=== PATIENT | male | born 1945 | race Caucasian/White ===

== ENCOUNTER 2017-02-26 00:07 | Inpatient (IN) | payer MEDICARE, MEDICAID ==
--- NOTE | 2017-02-26 00:30 | ED Physician Chart ---
Chief Complaint/HPI - Patient Information Date Seen:: 02/26/17 Time Seen:: 00:20 Chief Complaint:: aggressive behavior History of Present Illness:: Patient apparently exhibiting aggressive behavior at his nursing home facility. He is also reported is noncompliant but is not stated when he is noncompliant with. Allergies:: Allergies Allergy/AdvReac Type Severity Reaction Status Date / Time No Known Allergies Allergy Verified 02/26/17 00:21 Historian:: Patient, EMS Review:: Nurse's Note Reviewed, Patient unable to respond Review of Systems - Review of Systems General/Constitutional: No fever, No chills Skin: Skin lesions Head: No headache Eyes: No loss of vision ENT: No earache Neck: No neck pain, No swelling Cardio Vascular: No chest pain Pulmonary: No SOB GI: No nausea, No vomiting G/U: No dysuria Musculoskeletal: No bone or joint pain Endocrine: No polyuria, No polydipsia Psychiatric: Prior psych history Hematopoietic: No bruising Allergic/Immuno: No urticaria Neurological: No syncope Past Medical History - Past Medical History Past Medical History: HTN, DM, Asthma/COPD, Dyslipidemia, Dementia, Other ( benign prostatic hypertrophy; acute renal failure; hyperlipidemia) Family History: Other (CVA) Social History: Smoker, Care Facility Surgical History: CABG Psychiatricy History: Schizophrenia Family Medical History - Family Member Mother History Unknown: Yes Physical Exam - Physical Examination General/Constitutional: Well-developed, well-nourished, Alert, No distress Other Gen/Cons comments:: Confused; patient does not know the year Head: Atraumatic Eyes: Lids, conjuctiva normal, PERRL Other Skin comments:: 2 cm crossed just to left of mouth ENMT: External ears, nose nl Other ENMT comments:: Edentulous Neck: No nuchal rigidity Respiratory: Nl effort/Exclusion, Clear to Auscultation Cardio Vascular: RRR, No murmur, gallop, rubs GI: No tenderness/rebounding/guarding, No organomegaly, Normal BS's Extremities: No tenderness or effusion Neuro/Psych: Mood normal, No focal deficits Labs/Radiology/EKG Results - Lab Results Results: Laboratory Results - last 24 hr 02/26/17 02/26/17 02/26/17 00:40 00:40 00:40 WBC 7.9 RBC 4.76 Hgb 14.3 Hct 41.9 MCV 88.0 MCH 30.1 MCHC Differential 34.2 RDW 12.9 Plt Count 163 MPV 8.8 Neutrophils % 50.4 Lymphocytes % 37.4 Monocytes % 8.6 Eosinophils % 2.5 Basophils % 1.1 Sodium 144 Potassium 4.8 Chloride 109 H Carbon Dioxide 31.1 H Anion Gap 8.7 BUN 22 Creatinine 1.0 Est GFR ( Amer) TNP Est GFR (Non-Af Amer) TNP BUN/Creatinine Ratio 22.0 Glucose 184 H Calcium 10.7 H Total Bilirubin 0.4 AST 13 ALT 11 Alkaline Phosphatase 112 H Total Protein 7.5 Albumin 4.0 L Globulin 3.5 Albumin/Globulin Ratio 1.1 TSH 5.06 - EKG Interpretations Rate & Rhythm: atrial fibrillation with a rate of 84; T wave changes ED Septic Shock - . Is Septic Shock (SBP<90, OR Lactate>4 mmol\L) present?: No Reassessment (Disposition) - Reassessment Reassessment Condition:: Unchanged - Diagnosis Diagnosis:: dementia with aggressive behavior; atrial fibrillation - Patient Disposition Admitted to:: [facility] Admitting Medical Physician:: Elena Knutson Admitting Psych Physician:: Ana Gordon Condition at Disposition:: Stable, Unchanged
[2017-02-26 00:49] LABS: % BASOPHILS 1.1 % (0.0-2.0); % EOSINOPHILS 2.5 % (0.0-5.0); % LYMPHOCYTES 37.4 % (20.0-50.0); % MONOCYTES 8.6 % (2.0-10.0); % NEUTROPHILS 50.4 % (40.0-80.0); HEMATOCRIT 41.9 % (39.0-49.0); HEMOGLOBIN 14.3 gm/dL (12.6-17.4); MEAN CORPUSCULAR HEMOGLOBIN 30.1 pg (27.0-31.0); MEAN CORPUSCULAR HGB CONC 34.2 pg (28.0-36.0); MEAN PLATELET VOLUME 8.8 fl; NEUTROPHILE ABSOLUTE 3.9 Th/cmm (1.8-8.0); PLATELET COUNT 163 Th/cmm (150-400); RED BLOOD COUNT 4.76 Mil/cmm (3.80-5.80); RED CELL DISTRIBUTION WIDTH 12.9 % (11.5-20.0); WHITE BLOOD COUNT 7.9 Th/cmm (4.8-10.8)
[2017-02-26 01:03] LABS: ALB/GLOB RATIO 1.1 (1.0-1.8); ALKALINE PHOSPHATASE 112 U/L (34-104); ANION GAP 8.7 (7.0-16.0); BILIRUBIN,TOTAL 0.4 mg/dL (0.3-1.0); BUN - UREA NITROGEN 22 mg/dL (7-25); CALCIUM SERUM 10.7 mg/dL (8.6-10.3); CARBON DIOXIDE 31.1 mEq/L (21.0-31.0); CHLORIDE 109 mEq/L (98-107); GLUCOSE 184 mg/dL (70-105); POTASSIUM SERUM 4.8 mEq/L (3.5-5.1); SGOT 13 U/L (13-39); SGPT/ALT 11 U/L (7-52); SODIUM SERUM 144 mEq/L (136-145)
[2017-02-26 02:53] VITALS: BP 124/72
[2017-02-26] MEDS ORDERED: INSULIN ASPART SLIDING SCALE 100 UNITS/ML UNIT SUBQ PRN ×2 (02:58→03:29)
[2017-02-26] MEDS ORDERED: Albuterol Nebulizer 2.5mg/3mL HHN PRN (02:58)
[2017-02-26] MEDS: INSULIN ASPART SLIDING SCALE 100 UNITS/ML UNIT SUBQ SCH ×4 (06:34→21:02)
[2017-02-26] MEDS ORDERED: Non-Formulary Item 1 EA (Amino Acids/Protein Hydrolys [Pro-Stat Sugar Free Liquid] 30 ML) PO SCH (09:00)
[2017-02-26] MEDS: Potassium Chloride Elixir 20 mEq /15 mL UDC PO SCH (10:06)
[2017-02-26] MEDS: Multivitamin w/ Minerals Tab PO SCH (10:08)
[2017-02-26] MEDS: Dabigatran Mesylate 75 mg Cap PO SCH ×2 (12:18→18:16)
[2017-02-26] MEDS: Ipratropium Neb 0.5 mg/2.5 mL UD HHN SCH (19:26)
--- NOTE | 2017-02-26 20:27 | History & Physical ---
ADMIT DATE: 02/26/2017 HISTORY OF PRESENT ILLNESS: The patient is known to have history of psychosis and was brought to the Geropsych Unit for the patient's treatment. I was asked to see the patient ____ and was unable to get much history. PHYSICAL EXAMINATION: VITAL SIGNS: Stable. HEAD: Normal. ENT: Normal. NECK: Supple and nontender. LUNGS: Clear. CARDIOVASCULAR SYSTEM: S1 and S2 heard. ABDOMEN: Soft. Bowel sounds are heard. CENTRAL NERVOUS SYSTEM: Grossly normal. DIAGNOSES: Aggressive behavior, psychosis, and medically blind, ____. JOB# [id number]
[2017-02-26] MEDS: Atorvastatin Calcium 10 MG TAB PO SCH (20:40)
[2017-02-26] MEDS: Insulin Detemir 100 units/mL 10mL Vial SUBQ SCH (21:03)
--- NOTE | 2017-02-27 04:14 | Psychosocial Evaluation ---
DATE OF SERVICE: 02/26/2017 IDENTIFYING DATA: The patient is a 71-year-old male, resident of [facility] in [place]. Information obtained by directly interviewing the patient as well as reviewing the admission papers. JUSTIFICATION FOR HOSPITALIZATION: The patient is admitted here on a voluntary basis in view of his acute agitation and aggressive behavior and trying to hit the nurses and being noncompliant to the medications. Chart is reviewed. The patient is interviewed and further information obtained. The patient has been maintained on Depakote as well as the Seroquel, and the patient has been diagnosed possibly with the bipolar disorder, rule out schizoaffective disorder, and the patient, however, has been noncompliant with the medication, has been insisting on having his way. During the review of the chart, the patient is noted to be confused and demented and is not making much sense. The patient has been asked about the medications, he does not know at night time. The patient has been on Seroquel 200 mg twice a day and the patient is also on Depakote 250 mg 3 times a day. Even with the medications, the patient is reported to have been having problems. PAST PSYCHIATRIC HISTORY: Details are not known. MEDICAL HISTORY: The patient's physical examination is requested to be done by Dr. Knutson. SUBSTANCE ABUSE HISTORY: None. PHYSICAL OR SEXUAL ABUSE HISTORY: None. LEGAL PROBLEMS: None at this time. STRENGTH AND ASSETS: The patient is motivated. MENTAL STATUS EXAMINATION: The patient is a 71-year-old, looking his stated age, superficially cooperative. Eye contact is fair. Mood is noted to be irritable. Affect is constricted. Insight and judgment are noted to be very impaired. Impulse control seems to be poor. Coping skills are also noted to be very poor. The patient's short and long-term memory noted to be impaired. Short-term memory assessed by asking the patient what he had for breakfast and how long he has been in here and where he is and he has no clue. Long-term memory assessed by asking the patient date of , which is not able to recall. Attention span. Concentration also noted to be very poor. The patient's behavior is reported to be a danger to others. The patient has been trying to hurt other people. The patient is not suicidal. DIAGNOSTIC IMPRESSION: AXIS I: A. Bipolar disorder, mixed with psychotic symptoms, rule out schizoaffective disorder. B. Dementia and behavioral change secondary to it. AXIS II: None. AXIS III: As per Dr. Knutson. IMMEDIATE TREATMENT PLAN: The patient is going to be observed on the inpatient unit, provided with supportive psychotherapy. The patient is going to be closely monitored. Encouraged to participate in the groups and verbalize the concerns. When stabilized, the patient is going to be discharged to the facility for followup on an outpatient basis. JOB# [id number]
[2017-02-27] MEDS: INSULIN ASPART SLIDING SCALE 100 UNITS/ML UNIT SUBQ SCH ×4 (06:46→20:58)
[2017-02-27] MEDS: Ipratropium Neb 0.5 mg/2.5 mL UD HHN SCH ×4 (07:04→19:04)
[2017-02-27] MEDS: Potassium Chloride Elixir 20 mEq /15 mL UDC PO SCH (09:29)
[2017-02-27] MEDS: Multivitamin w/ Minerals Tab PO SCH (09:30)
[2017-02-27] MEDS: Dabigatran Mesylate 75 mg Cap PO SCH ×2 (09:32→17:06)
[2017-02-27] MEDS: Atorvastatin Calcium 10 MG TAB PO SCH (20:45)
[2017-02-27] MEDS: Insulin Detemir 100 units/mL 10mL Vial SUBQ SCH (20:48)
--- NOTE | 2017-02-27 21:02 | Progress Notes ---
DATE: 02/27/2017 SUBJECTIVE: The patient was seen in his room lying in bed. The patient is a poor historian due to medical condition. Otherwise, the patient is in no acute distress. OBJECTIVE: VITAL SIGNS: Temperature 98.5, heart rate of 86, respirations 19, blood pressure 134/80. HEENT: Head is atraumatic and normocephalic. Eyes: Bilateral conjunctivae are clear. Bilateral pupils are equally round and reactive. NECK: Supple. No JVD. CARDIOVASCULAR: S1 and S2, without murmur. PULMONARY: Clear to auscultation. GASTROINTESTINAL: Soft and nontender without guarding. MUSCULOSKELETAL: No edema, no clubbing, no cyanosis. DIAGNOSES: 1. Bipolar. 2. Schizoaffective disorder . 3. Dementia. 4. Diabetes mellitus 5. Hyperlipidemia. 6. Osteoarthritis. 7. Benign prostatic hypertrophy. 8. Hypertension. PLAN: We will continue to monitor and keep the patient as inpatient Psychiatric Unit. We will follow up with a psychiatrist to monitor the patient's behavior. Treatment plans were discussed with Dr. Knutson. JOB# [id number]
--- NOTE | 2017-02-28 06:43 | Progress Notes ---
DATE: 02/27/2017 PSYCHIATRIC PROGRESS NOTE TIME PATIENT SEEN: 3:00 p.m. SUBJECTIVE: Staff was spoken to. The patient is interviewed. Mood is noted to be irritable. Affect is constricted. Insight and judgment are noted to be still impaired. Impulse control seems to be poor. Continues to be very paranoid. Mood swings are still a concern. The patient is currently on 200 mg twice a day of the Seroquel and has been able to tolerate the medication. The patient is also on Depakote 250 mg three times a day. No side effects to the medications are noted. ASSESSMENT: The patient is still having acute mood swings and is also noted to be paranoid. PLAN: To continue the patient with supportive therapy. I encouraged the patient to verbalize the concerns rather than to act out. The patient is not ready to be discharged to a lower level of care yet in view of the mood swings and psychosis. JOB# [id number]
[2017-02-28] MEDS: Ipratropium Neb 0.5 mg/2.5 mL UD HHN SCH ×4 (06:56→19:36)
[2017-02-28] MEDS: INSULIN ASPART SLIDING SCALE 100 UNITS/ML UNIT SUBQ SCH ×4 (06:56→21:00)
[2017-02-28] MEDS: Potassium Chloride Elixir 20 mEq /15 mL UDC PO SCH ×2 (10:26→10:39)
[2017-02-28] MEDS: Dabigatran Mesylate 75 mg Cap PO SCH ×2 (10:28→17:37)
[2017-02-28] MEDS: Multivitamin w/ Minerals Tab PO SCH (10:32)
--- NOTE | 2017-02-28 10:33 | General Progress Note ---
Subjective - Review of Systems Events since last encounter: patient with no distress awake Objective - Results Result Diagrams: 02/26/17 00:40 05 00:40 Recent Labs: Laboratory Last Values WBC 7.9 Th/cmm (4.8-10.8) 02/26/17 00:40 RBC 4.76 Mil/cmm (3.80-5.80) 02/26/17 00:40 Hgb 14.3 gm/dL (12.6-17.4) 02/26/17 00:40 Hct 41.9 % (39.0-49.0) 02/26/17 00:40 MCV 88.0 fl (80-99) 02/26/17 00:40 MCH 30.1 pg (27.0-31.0) 02/26/17 00:40 MCHC Differential 34.2 pg (28.0-36.0) 02/26/17 00:40 RDW 12.9 % (11.5-20.0) 02/26/17 00:40 Plt Count 163 Th/cmm (150-400) 02/26/17 00:40 MPV 8.8 fl 02/26/17 00:40 Neutrophils % 50.4 % (40.0-80.0) 02/26/17 00:40 Lymphocytes % 37.4 % (20.0-50.0) 02/26/17 00:40 Monocytes % 8.6 % (2.0-10.0) 02/26/17 00:40 Eosinophils % 2.5 % (0.0-5.0) 02/26/17 00:40 Basophils % 1.1 % (0.0-2.0) 02/26/17 00:40 Sodium 144 mEq/L (136-145) 02/26/17 00:40 Potassium 4.8 mEq/L (3.5-5.1) 02/26/17 00:40 Chloride 109 mEq/L (98-107) H 02/26/17 00:40 Carbon Dioxide 31.1 mEq/L (21.0-31.0) H 02/26/17 00:40 Anion Gap 8.7 (7.0-16.0) 02/26/17 00:40 BUN 22 mg/dL (7-25) 02/26/17 00:40 Creatinine 1.0 mg/dL (0.7-1.3) 02/26/17 00:40 Est GFR ( Amer) TNP 02/26/17 00:40 Est GFR (Non-Af Amer) TNP 02/26/17 00:40 BUN/Creatinine Ratio 22.0 02/26/17 00:40 Glucose 184 mg/dL (70-105) H 02/26/17 00:40 POC Glucose 73 MG/DL (70 - 105) 02/28/17 06:19 Hemoglobin A1c % 7.1 % (4.0-6.0) H 02/26/17 00:40 Calcium 10.7 mg/dL (8.6-10.3) H 02/26/17 00:40 Total Bilirubin 0.4 mg/dL (0.3-1.0) 02/26/17 00:40 AST 13 U/L (13-39) 02/26/17 00:40 ALT 11 U/L (7-52) 02/26/17 00:40 Alkaline Phosphatase 112 U/L (34-104) H 02/26/17 00:40 Total Protein 7.5 gm/dL (6.0-8.3) 02/26/17 00:40 Albumin 4.0 gm/dL (4.2-5.5) L 02/26/17 00:40 Globulin 3.5 gm/dL 02/26/17 00:40 Albumin/Globulin Ratio 1.1 (1.0-1.8) 02/26/17 00:40 TSH 5.06 uIU/ml (0.34-5.60) 02/26/17 00:40 RPR NONREACTIVE (NONREACTIVE) 02/26/17 00:40 - Physical Exam Vitals and I&O: Vital Signs Temp 98.1 F 02/28/17 06:29 Pulse 85 02/28/17 10:29 Resp 14 02/28/17 06:50 BP 146/71 02/28/17 10:29 Pulse Ox 96 02/28/17 06:50 Intake & Output 02/27/17 02/28/17 02/28/17 18:59 06:59 18:59 Intake Total 850 240 Balance 850 240 Intake: Oral 850 240 Other: # Voids 4 1 # Bowel Movements 1 Active Medications: Current Medications Albuterol Sulfate (Albuterol 2.5mg/3ml Neb Ud) 2.5 mg HHN Q4HR PRN PRN Reason: Shortness of Breath Ascorbic Acid (Vitamin C) 500 mg PO DAILY [facility] Stop: 04/27/17 08:59 Last Admin: 02/28/17 10:30 Dose: 500 mg Atorvastatin Calcium (Lipitor) 40 mg PO HS [facility] Stop: 04/27/17 20:59 Last Admin: 02/27/17 20:45 Dose: 40 mg Divalproex Sodium (Depakote Dr) 250 mg PO TID [facility] PRN Reason: Protocol Stop: 04/27/17 08:59 Last Admin: 02/28/17 10:30 Dose: 250 mg Furosemide (Lasix) 20 mg PO BID [facility] Stop: 04/27/17 08:59 Last Admin: 02/27/17 17:06 Dose: 20 mg Ibuprofen (Advil) 600 mg PO QID [facility] Stop: 04/27/17 13:14 Last Admin: 02/27/17 20:46 Dose: 600 mg Insulin Aspart (Novolog Insulin Sliding Scale) 0 units SUBQ ACHS [facility] PRN Reason: Protocol Stop: 04/27/17 07:29 Last Admin: 02/28/17 06:56 Dose: Not Given Insulin Detemir (Levemir Insulin) 20 units SUBQ HS [facility] Stop: 04/27/17 20:59 Last Admin: 02/27/17 20:48 Dose: 20 units Ipratropium [place] (Atrovent Neb 0.5mg/2.5ml) 0.5 mg HHN QIDRT [facility] Stop: 04/27/17 10:59 Last Admin: 02/28/17 06:56 Dose: 0.5 mg Lisinopril (Zestril) 20 mg PO DAILY [facility] Stop: 04/27/17 08:59 Last Admin: 02/28/17 10:29 Dose: 20 mg Potassium Chloride (Potassium Chloride Elixir) 10 meq PO DAILY [facility] Stop: 04/27/17 08:59 Last Admin: 02/28/17 10:26 Dose: 10 meq Quetiapine Fumarate (Seroquel) 200 mg PO BID [facility] PRN Reason: Protocol Stop: 04/27/17 08:59 Last Admin: 02/28/17 10:30 Dose: 200 mg Senna (Senna) 8.6 mg PO [facility] Stop: 04/27/17 20:59 Last Admin: 02/27/17 20:45 Dose: 8.6 mg Tamsulosin HCl (Flomax) 0.4 mg PO HS [facility] Stop: 04/27/17 20:59 Last Admin: 02/27/17 20:45 Dose: 0.4 mg Zolpidem Tartrate (Ambien) 5 mg PO HS PRN PRN Reason: Insomnia Stop: 04/27/17 02:52 Nutritional Asmnt/Malnutr-PDOC - Dietary Evaluation Malnutrition Findings (Please click <Entered> for more info): Nutritional Asmnt/Malnutrition Start: 02/26/17 14: 42 Text: Status: Complete Freq: Document 02/26/17 14:42 GSUN (Rec: 02/26/17 14:54 [email or web address] [email or web address]) Nutritional Asmnt/Malnutrition Patient General Information Nutritional Screening High Risk Screening Diagnosis ER: dementia with aggressive behavior, atrial fibrillation Pertinent Medical Hx/Surgical Hx ER: HTN, DM, asthma/COPD, dyslipidemia, dementia, benign prostatic hypertrophy, acute renal filure, hyperlipidemia, schizophrenia, smoker, CABG Subjective Information 71 year old male from SNF. Pt was asleep during visit, unable to be woken up. No significant muscle/fat wasting noted, pt appears overweight. Bedscale malfunction, unable to obtain weight. Spoke to CERTIFIED PEER SPECIALIST , CERTIFIED PEER SPECIALIST stated pt has good appetite, ate nearly 100% breakfast, no difficulties noted. Current Diet Order/ Nutrition Support [facility] soft chopped, NCS, [place] , [id number] Pertinent Medications Vitamin C, Lipitor, Lasix, Novolog, Levemir, Senna, Seroquel Pertinent Labs 02/26: glucose 184H, A1c 7.1H Nutritional Hx/Data Height 1.7 m Height (Calculated Centimeters) 170.2 Current Weight (lbs) 90.718 kg Weight (Calculated Kilograms) 90.7 Weight (Calculated Grams) 88167.5 [place] Body Weight 148 GI Symptoms [facility] [place], ground meat Skin Integrity/Comment: Contreras Barakat. Estimated Nutritional Goals Calories/Kcals/Kg IBW 148lb/67.3kg Kcals Calculated 1683-2019kcal (25-30kcal/kg) Protein g/kg: IBW Protein Calculated 67g (1g/kg) Fluid: ml 1683-2019ml (1ml/kcal) Nutritional Problem 1. Problem Problem Altered nutrition related laboratory values related to Etiology DM aeb Signs/Symptoms: H&P, A1c 7.1, elevated glucose Intervention/Recommendation Comments 1. Recommend [id number] to rpomtoe glycemic control. Expected Outcomes/Goals Expected Outcomes/Goals 1. PO intake to meet at least 75% of estimated nutritional needs.
--- NOTE | 2017-02-28 12:23 | Admit Criteria Form ---
Admit Criteria Forms - Admit Criteria Diagnosis: PSYCHIATRIC DISORDERS Clinical Indications for Inpatient Care (Place 'X' for any and all applicable criteria): Ongoing inpatient care may be needed for ANY ONE of the following(1)(2)(3)(4)(6) (7)(8): [ ]I. Danger to self or others not manageable at lower level of care. [ ]II. Grave disability (eg, inability to perform self care necessary at lower level of care) [X ]III. Agitation or inappropriate behavior interfering with care for primary condition (eg, attempting to discontinue lines or drains prematurely, unable to cooperate with respiratory care) [ ]IV. Severe disability or disorder indicated by ALL of the following: [ ]a) Severe behavioral health disorder-related symptoms or condition indicated by ANY ONE of the following: [ ]i) Severe problem with cognition, memory, judgment, or impulse control [ ]ii) Severe clinical manifestations (eg, hallucinations, delusions, other acute psychotic symptoms, maik, extreme agitation or anxiety) [ ]b) Patient management at lower level of care is not feasible until acute intervention or modification is initiated. Extended stay beyond goal length of stay for the primary condition may be indicated when ANY ONE of the following is present: (1)(2)(3)(4): [ ]a) Patient is a danger to self or others and not manageable at lower level of care. [ ]b) Behavior crisis management, including physical or chemical restraints, is required and is not available at a lower level of care. [ ]c) Behavioral symptoms (e.g., agitation, somnolence, inappropriate behavior) are present, and are not manageable at a lower level of care. [ ]d) Patient cannot understand follow-up treatment and crisis plan. [ ]e) Provider and supports are not sufficiently available at lower level of care. [ ]f) Patient cannot participate (e.g., verify absence of plan for harm) and is in needed of monitoring. The original [facility] [employer] content created by [facility] DykesMajor Aide has been revised. The portions of the content which have been revised are identified through the use of italic text or in bold, and [facility] DykesMajor Aide has neither reviewed nor approved the modified material. All other unmodified content is copyright [facility] JaniaMajor Aide. Please see references footnoted in the original [facility] edition 2016 Admit Criteria Met?: Yes
[2017-02-28] MEDS: Atorvastatin Calcium 10 MG TAB PO SCH (20:56)
[2017-02-28] MEDS: Insulin Detemir 100 units/mL 10mL Vial SUBQ SCH (21:02)
[2017-03-01] MEDS: Ipratropium Neb 0.5 mg/2.5 mL UD HHN SCH ×4 (07:00→19:43)
[2017-03-01] MEDS: INSULIN ASPART SLIDING SCALE 100 UNITS/ML UNIT SUBQ SCH ×4 (07:53→20:45)
--- NOTE | 2017-03-01 08:27 | General Progress Note ---
Subjective - Review of Systems Events since last encounter: no change Objective - Results Result Diagrams: 02/26/17 00:40 05 00:40 Recent Labs: Laboratory Last Values WBC 7.9 Th/cmm (4.8-10.8) 02/26/17 00:40 RBC 4.76 Mil/cmm (3.80-5.80) 02/26/17 00:40 Hgb 14.3 gm/dL (12.6-17.4) 02/26/17 00:40 Hct 41.9 % (39.0-49.0) 02/26/17 00:40 MCV 88.0 fl (80-99) 02/26/17 00:40 MCH 30.1 pg (27.0-31.0) 02/26/17 00:40 MCHC Differential 34.2 pg (28.0-36.0) 02/26/17 00:40 RDW 12.9 % (11.5-20.0) 02/26/17 00:40 Plt Count 163 Th/cmm (150-400) 02/26/17 00:40 MPV 8.8 fl 02/26/17 00:40 Neutrophils % 50.4 % (40.0-80.0) 02/26/17 00:40 Lymphocytes % 37.4 % (20.0-50.0) 02/26/17 00:40 Monocytes % 8.6 % (2.0-10.0) 02/26/17 00:40 Eosinophils % 2.5 % (0.0-5.0) 02/26/17 00:40 Basophils % 1.1 % (0.0-2.0) 02/26/17 00:40 Sodium 144 mEq/L (136-145) 02/26/17 00:40 Potassium 4.8 mEq/L (3.5-5.1) 02/26/17 00:40 Chloride 109 mEq/L (98-107) H 02/26/17 00:40 Carbon Dioxide 31.1 mEq/L (21.0-31.0) H 02/26/17 00:40 Anion Gap 8.7 (7.0-16.0) 02/26/17 00:40 BUN 22 mg/dL (7-25) 02/26/17 00:40 Creatinine 1.0 mg/dL (0.7-1.3) 02/26/17 00:40 Est GFR ( Amer) TNP 02/26/17 00:40 Est GFR (Non-Af Amer) TNP 02/26/17 00:40 BUN/Creatinine Ratio 22.0 02/26/17 00:40 Glucose 184 mg/dL (70-105) H 02/26/17 00:40 POC Glucose 71 MG/DL (70 - 105) 03/01/17 06:46 Hemoglobin A1c % 7.1 % (4.0-6.0) H 02/26/17 00:40 Calcium 10.7 mg/dL (8.6-10.3) H 02/26/17 00:40 Total Bilirubin 0.4 mg/dL (0.3-1.0) 02/26/17 00:40 AST 13 U/L (13-39) 02/26/17 00:40 ALT 11 U/L (7-52) 02/26/17 00:40 Alkaline Phosphatase 112 U/L (34-104) H 02/26/17 00:40 Total Protein 7.5 gm/dL (6.0-8.3) 02/26/17 00:40 Albumin 4.0 gm/dL (4.2-5.5) L 02/26/17 00:40 Globulin 3.5 gm/dL 02/26/17 00:40 Albumin/Globulin Ratio 1.1 (1.0-1.8) 02/26/17 00:40 TSH 5.06 uIU/ml (0.34-5.60) 02/26/17 00:40 RPR NONREACTIVE (NONREACTIVE) 02/26/17 00:40 - Physical Exam Vitals and I&O: Vital Signs Temp 97 F 03/01/17 06:08 Pulse 78 03/01/17 07:00 Resp 14 03/01/17 07:00 BP 140/77 03/01/17 06:08 Pulse Ox 96 03/01/17 07:00 Intake & Output 02/28/17 03/01/17 03/01/17 18:59 06:59 18:59 Intake Total 750 120 Balance 750 120 Intake: Oral 750 120 Other: # Voids 4 3 # Bowel Movements 0 0 Active Medications: Current Medications Albuterol Sulfate (Albuterol 2.5mg/3ml Neb Ud) 2.5 mg HHN Q4HR PRN PRN Reason: Shortness of Breath Ascorbic Acid (Vitamin C) 500 mg PO DAILY [facility] Stop: 04/27/17 08:59 Last Admin: 02/28/17 10:30 Dose: 500 mg Atorvastatin Calcium (Lipitor) 40 mg PO HS [facility] Stop: 04/27/17 20:59 Last Admin: 02/28/17 20:56 Dose: 40 mg Divalproex Sodium (Depakote Dr) 250 mg PO TID [facility] PRN Reason: Protocol Stop: 04/27/17 08:59 Last Admin: 02/28/17 20:57 Dose: 250 mg Furosemide (Lasix) 20 mg PO BID [facility] Stop: 04/27/17 08:59 Last Admin: 02/28/17 17:37 Dose: Not Given Ibuprofen (Advil) 600 mg PO QID [facility] Stop: 04/27/17 13:14 Last Admin: 02/28/17 20:55 Dose: 600 mg Insulin Aspart (Novolog Insulin Sliding Scale) 0 units SUBQ ACHS [facility] PRN Reason: Protocol Stop: 04/27/17 07:29 Last Admin: 03/01/17 07:53 Dose: Not Given Insulin Detemir (Levemir Insulin) 20 units SUBQ HS [facility] Stop: 04/27/17 20:59 Last Admin: 02/28/17 21:02 Dose: 20 units Ipratropium [place] (Atrovent Neb 0.5mg/2.5ml) 0.5 mg HHN QIDRT [facility] Stop: 04/27/17 10:59 Last Admin: 03/01/17 07:00 Dose: 0.5 mg Lisinopril (Zestril) 20 mg PO DAILY [facility] Stop: 04/27/17 08:59 Last Admin: 02/28/17 10:29 Dose: 20 mg Potassium Chloride (Potassium Chloride Elixir) 10 meq PO DAILY [facility] Stop: 04/27/17 08:59 Last Admin: 02/28/17 10:39 Dose: Not Given Quetiapine Fumarate (Seroquel) 200 mg PO BID [facility] PRN Reason: Protocol Stop: 04/27/17 08:59 Last Admin: 02/28/17 17:38 Dose: Not Given Senna (Senna) 8.6 mg PO HS [facility] Stop: 04/27/17 20:59 Last Admin: 02/28/17 20:56 Dose: 8.6 mg Tamsulosin HCl (Flomax) 0.4 mg PO HS [facility] Stop: 04/27/17 20:59 Last Admin: 02/28/17 20:54 Dose: 0.4 mg Zolpidem Tartrate (Ambien) 5 mg PO HS PRN PRN Reason: Insomnia Stop: 04/27/17 02:52 Nutritional Asmnt/Malnutr-PDOC - Dietary Evaluation Malnutrition Findings (Please click <Entered> for more info): Nutritional Asmnt/Malnutrition Start: 02/26/17 14: 42 Text: Status: Complete Freq: Document 02/26/17 14:42 GSUN (Rec: 02/26/17 14:54 [email or web address] [email or web address]) Nutritional Asmnt/Malnutrition Patient General Information Nutritional Screening High Risk Screening Diagnosis ER: dementia with aggressive behavior, atrial fibrillation Pertinent Medical Hx/Surgical Hx ER: HTN, DM, asthma/COPD, dyslipidemia, dementia, benign prostatic hypertrophy, acute renal filure, hyperlipidemia, schizophrenia, smoker, CABG Subjective Information 71 year old male from SNF. Pt was asleep during visit, unable to be woken up. No significant muscle/fat wasting noted, pt appears overweight. Bedscale malfunction, unable to obtain weight. Spoke to IBM BPM DEVELOPER , [employer] BPM DEVELOPER stated pt has good appetite, ate nearly 100% breakfast, no difficulties noted. Current Diet Order/ Nutrition Support [facility] soft chopped, NCS, [place] , [id number] Pertinent Medications Vitamin C, Lipitor, Lasix, Novolog, Levemir, Senna, Seroquel Pertinent Labs 02/26: glucose 184H, A1c 7.1H Nutritional Hx/Data Height 1.7 m Height (Calculated Centimeters) 170.2 Current Weight (lbs) 90.718 kg Weight (Calculated Kilograms) 90.7 Weight (Calculated Grams) 04704.5 [place] Body Weight 148 GI Symptoms Usual diet at home [facility] SNF: NCS, [facility] soft , [place], ground meat Skin Integrity/Comment: Contreras Barakat. Estimated Nutritional Goals Calories/Kcals/Kg IBW 148lb/67.3kg Kcals Calculated 1683-2019kcal (25-30kcal/kg) Protein g/kg: IBW Protein Calculated 67g (1g/kg) Fluid: ml 1683-2019ml (1ml/kcal) Nutritional Problem 1. Problem Problem Altered nutrition related laboratory values related to Etiology DM aeb Signs/Symptoms: H&P, A1c 7.1, elevated glucose Intervention/Recommendation Comments 1. Recommend [id number] to rpomtoe glycemic control. Expected Outcomes/Goals Expected Outcomes/Goals 1. PO intake to meet at least 75% of estimated nutritional needs.
--- NOTE | 2017-03-01 08:41 | Progress Notes ---
DATE: 02/28/2017 PSYCHIATRIC PROGRESS NOTE TIME PATIENT SEEN: 11:30 a.m. SUBJECTIVE: Staff was spoken to. The patient is interviewed. Mood is noted to be irritable. Affect is constricted. Insight and judgment are noted to be still impaired. Impulse control is noted to be poor. The patient has been threatening to hurt others. The patient to be given a dose of Ativan to calm him down. The patient at this time is not able to contract for safety. No side effects to the medications are noted. ASSESSMENT: The patient is still impulsive and hence the patient is currently on Seroquel 200 mg twice a day and has been able to tolerate the medications. PLAN: To continue the patient with the current medications. I encouraged the patient to verbalize the concerns rather than to act out. JOB# [id number]
[2017-03-01] MEDS: Dabigatran Mesylate 75 mg Cap PO SCH ×2 (09:39→17:21)
[2017-03-01] MEDS: Potassium Chloride Elixir 20 mEq /15 mL UDC PO SCH (09:42)
[2017-03-01] MEDS: Multivitamin w/ Minerals Tab PO SCH (09:42)
[2017-03-01] MEDS: Atorvastatin Calcium 10 MG TAB PO SCH (20:09)
[2017-03-01] MEDS: Insulin Detemir 100 units/mL 10mL Vial SUBQ SCH (20:45)
[2017-03-02] MEDS: INSULIN ASPART SLIDING SCALE 100 UNITS/ML UNIT SUBQ SCH ×4 (06:34→20:31)
[2017-03-02] MEDS: Ipratropium Neb 0.5 mg/2.5 mL UD HHN SCH ×5 (08:01→19:20)
--- NOTE | 2017-03-02 08:40 | General Progress Note ---
Subjective - Review of Systems Events since last encounter: no distress Objective - Results Result Diagrams: 02/26/17 00:40 05 00:40 Recent Labs: Laboratory Last Values WBC 7.9 Th/cmm (4.8-10.8) 02/26/17 00:40 RBC 4.76 Mil/cmm (3.80-5.80) 02/26/17 00:40 Hgb 14.3 gm/dL (12.6-17.4) 02/26/17 00:40 Hct 41.9 % (39.0-49.0) 02/26/17 00:40 MCV 88.0 fl (80-99) 02/26/17 00:40 MCH 30.1 pg (27.0-31.0) 02/26/17 00:40 MCHC Differential 34.2 pg (28.0-36.0) 02/26/17 00:40 RDW 12.9 % (11.5-20.0) 02/26/17 00:40 Plt Count 163 Th/cmm (150-400) 02/26/17 00:40 MPV 8.8 fl 02/26/17 00:40 Neutrophils % 50.4 % (40.0-80.0) 02/26/17 00:40 Lymphocytes % 37.4 % (20.0-50.0) 02/26/17 00:40 Monocytes % 8.6 % (2.0-10.0) 02/26/17 00:40 Eosinophils % 2.5 % (0.0-5.0) 02/26/17 00:40 Basophils % 1.1 % (0.0-2.0) 02/26/17 00:40 Sodium 144 mEq/L (136-145) 02/26/17 00:40 Potassium 4.8 mEq/L (3.5-5.1) 02/26/17 00:40 Chloride 109 mEq/L (98-107) H 02/26/17 00:40 Carbon Dioxide 31.1 mEq/L (21.0-31.0) H 02/26/17 00:40 Anion Gap 8.7 (7.0-16.0) 02/26/17 00:40 BUN 22 mg/dL (7-25) 02/26/17 00:40 Creatinine 1.0 mg/dL (0.7-1.3) 02/26/17 00:40 Est GFR ( Amer) TNP 02/26/17 00:40 Est GFR (Non-Af Amer) TNP 02/26/17 00:40 BUN/Creatinine Ratio 22.0 02/26/17 00:40 Glucose 184 mg/dL (70-105) H 02/26/17 00:40 POC Glucose 136 MG/DL (70 - 105) H 03/01/17 16:32 Hemoglobin A1c % 7.1 % (4.0-6.0) H 02/26/17 00:40 Calcium 10.7 mg/dL (8.6-10.3) H 02/26/17 00:40 Total Bilirubin 0.4 mg/dL (0.3-1.0) 02/26/17 00:40 AST 13 U/L (13-39) 02/26/17 00:40 ALT 11 U/L (7-52) 02/26/17 00:40 Alkaline Phosphatase 112 U/L (34-104) H 02/26/17 00:40 Total Protein 7.5 gm/dL (6.0-8.3) 02/26/17 00:40 Albumin 4.0 gm/dL (4.2-5.5) L 02/26/17 00:40 Globulin 3.5 gm/dL 02/26/17 00:40 Albumin/Globulin Ratio 1.1 (1.0-1.8) 02/26/17 00:40 TSH 5.06 uIU/ml (0.34-5.60) 02/26/17 00:40 RPR NONREACTIVE (NONREACTIVE) 02/26/17 00:40 - Physical Exam Vitals and I&O: Vital Signs Temp 98.2 F 03/02/17 06:08 Pulse 89 03/02/17 06:08 Resp 18 03/02/17 06:08 BP 149/93 03/02/17 06:08 Pulse Ox 95 03/02/17 06:08 Intake & Output 03/01/17 03/02/17 03/02/17 18:59 06:59 18:59 Intake Total 2400 120 Balance 2400 120 Intake: Oral 2400 120 Other: # Voids 4 1 # Bowel Movements 1 0 Active Medications: Current Medications Albuterol Sulfate (Albuterol 2.5mg/3ml Neb Ud) 2.5 mg HHN Q4HR PRN PRN Reason: Shortness of Breath Ascorbic Acid (Vitamin C) 500 mg PO DAILY [facility] Stop: 04/27/17 08:59 Last Admin: 03/01/17 09:45 Dose: 500 mg Atorvastatin Calcium (Lipitor) 40 mg PO HS [facility] Stop: 04/27/17 20:59 Last Admin: 03/01/17 20:09 Dose: 40 mg Divalproex Sodium (Depakote Dr) 250 mg PO TID [facility] PRN Reason: Protocol Stop: 04/27/17 08:59 Last Admin: 03/01/17 20:12 Dose: 250 mg Furosemide (Lasix) 20 mg PO BID [facility] Stop: 04/27/17 08:59 Last Admin: 03/01/17 17:21 Dose: 20 mg Ibuprofen (Advil) 600 mg PO QID [facility] Stop: 04/27/17 13:14 Last Admin: 03/01/17 20:09 Dose: 600 mg Insulin Aspart (Novolog Insulin Sliding Scale) 0 units SUBQ ACHS [facility] PRN Reason: Protocol Stop: 04/27/17 07:29 Last Admin: 03/02/17 06:34 Dose: Not Given Insulin Detemir (Levemir Insulin) 20 units SUBQ HS [facility] Stop: 04/27/17 20:59 Last Admin: 03/01/17 20:45 Dose: 20 units Ipratropium [place] (Atrovent Neb 0.5mg/2.5ml) 0.5 mg HHN QIDRT [facility] Stop: 04/27/17 10:59 Last Admin: 03/02/17 08:01 Dose: Not Given Lisinopril (Zestril) 20 mg PO DAILY [facility] Stop: 04/27/17 08:59 Last Admin: 03/01/17 09:44 Dose: 20 mg Potassium Chloride (Potassium Chloride Elixir) 10 meq PO DAILY [facility] Stop: 04/27/17 08:59 Last Admin: 03/01/17 09:42 Dose: 10 meq Quetiapine Fumarate (Seroquel) 200 mg PO BID [facility] PRN Reason: Protocol Stop: 04/27/17 08:59 Last Admin: 03/01/17 17:21 Dose: 200 mg Senna (Senna) 8.6 mg PO [facility] Stop: 04/27/17 20:59 Last Admin: 03/01/17 20:12 Dose: 8.6 mg Tamsulosin HCl (Flomax) 0.4 mg PO HS [facility] Stop: 04/27/17 20:59 Last Admin: 03/01/17 20:12 Dose: 0.4 mg Zolpidem Tartrate (Ambien) 5 mg PO HS PRN PRN Reason: Insomnia Stop: 04/27/17 02:52 Nutritional Asmnt/Malnutr-PDOC - Dietary Evaluation Malnutrition Findings (Please click <Entered> for more info): Nutritional Asmnt/Malnutrition Start: 02/26/17 14: 42 Text: Status: Complete Freq: Document 02/26/17 14:42 GSUN (Rec: 02/26/17 14:54 GSUN [email or web address]) Nutritional Asmnt/Malnutrition Patient General Information Nutritional Screening High Risk Screening Diagnosis ER: dementia with aggressive behavior, atrial fibrillation Pertinent Medical Hx/Surgical Hx ER: HTN, DM, asthma/COPD, dyslipidemia, dementia, benign prostatic hypertrophy, acute renal filure, hyperlipidemia, schizophrenia, smoker, CABG Subjective Information 71 year old male from SNF. Pt was asleep during visit, unable to be woken up. No significant muscle/fat wasting noted, pt appears overweight. Bedscale malfunction, unable to obtain weight. Spoke to OVERHEAD IRRIGATOR , OVERHEAD IRRIGATOR stated pt has good appetite, ate nearly 100% breakfast, no difficulties noted. Current Diet Order/ Nutrition Support [facility] soft chopped, NCS, [place] , [id number] Pertinent Medications Vitamin C, Lipitor, Lasix, Novolog, Levemir, Senna, Seroquel Pertinent Labs 02/26: glucose 184H, A1c 7.1H Nutritional Hx/Data Height 1.7 m Height (Calculated Centimeters) 170.2 Current Weight (lbs) 90.718 kg Weight (Calculated Kilograms) 90.7 Weight (Calculated Grams) 65573.5 [place] Body Weight 148 GI Symptoms [facility], [place] soft , [place], ground meat Skin Integrity/Comment: Contreras Barakat. Estimated Nutritional Goals Calories/Kcals/Kg IBW 148lb/67.3kg Kcals Calculated 1683-2019kcal (25-30kcal/kg) Protein g/kg: IBW Protein Calculated 67g (1g/kg) Fluid: ml 1683-2019ml (1ml/kcal) Nutritional Problem 1. Problem Problem Altered nutrition related laboratory values related to Etiology DM aeb Signs/Symptoms: H&P, A1c 7.1, elevated glucose Intervention/Recommendation Comments 1. Recommend [id number] to rpomtoe glycemic control. Expected Outcomes/Goals Expected Outcomes/Goals 1. PO intake to meet at least 75% of estimated nutritional needs.
[2017-03-02] MEDS: Potassium Chloride Elixir 20 mEq /15 mL UDC PO SCH (09:07)
[2017-03-02] MEDS: Multivitamin w/ Minerals Tab PO SCH (09:07)
[2017-03-02] MEDS: Dabigatran Mesylate 75 mg Cap PO SCH ×2 (09:14→16:30)
--- NOTE | 2017-03-02 18:49 | Progress Notes ---
DATE: 03/01/2017 PSYCHIATRIC PROGRESS NOTE TIME PATIENT SEEN: 9:00 a.m. SUBJECTIVE: Staff was spoken to. The patient is interviewed. Mood is noted to be irritable. Affect is constricted. Insight and judgment are very impaired. Impulse control seems to be poor. The patient has been trying to set the limit. The patient has been screaming and yelling at the staff and has been trying to hit them when they are trying to help. No side effects to the medications are noted. The patient is paranoid and demented at the same time and needs to be closely monitored. PLAN: To continue the patient with the current medications. I encouraged the patient to verbalize the concerns rather than to act out. JOB# [id number]
[2017-03-02] MEDS: Atorvastatin Calcium 10 MG TAB PO SCH (20:18)
[2017-03-02] MEDS: Insulin Detemir 100 units/mL 10mL Vial SUBQ SCH (20:31)
[2017-03-03] MEDS: INSULIN ASPART SLIDING SCALE 100 UNITS/ML UNIT SUBQ SCH ×4 (06:36→20:40)
[2017-03-03] MEDS: Ipratropium Neb 0.5 mg/2.5 mL UD HHN SCH ×4 (07:28→20:19)
--- NOTE | 2017-03-03 08:13 | General Progress Note ---
Subjective - Review of Systems Events since last encounter: no distress Objective - Results Result Diagrams: 02/26/17 00:40 05 00:40 Recent Labs: Laboratory Last Values WBC 7.9 Th/cmm (4.8-10.8) 02/26/17 00:40 RBC 4.76 Mil/cmm (3.80-5.80) 02/26/17 00:40 Hgb 14.3 gm/dL (12.6-17.4) 02/26/17 00:40 Hct 41.9 % (39.0-49.0) 02/26/17 00:40 MCV 88.0 fl (80-99) 02/26/17 00:40 MCH 30.1 pg (27.0-31.0) 02/26/17 00:40 MCHC Differential 34.2 pg (28.0-36.0) 02/26/17 00:40 RDW 12.9 % (11.5-20.0) 02/26/17 00:40 Plt Count 163 Th/cmm (150-400) 02/26/17 00:40 MPV 8.8 fl 02/26/17 00:40 Neutrophils % 50.4 % (40.0-80.0) 02/26/17 00:40 Lymphocytes % 37.4 % (20.0-50.0) 02/26/17 00:40 Monocytes % 8.6 % (2.0-10.0) 02/26/17 00:40 Eosinophils % 2.5 % (0.0-5.0) 02/26/17 00:40 Basophils % 1.1 % (0.0-2.0) 02/26/17 00:40 Sodium 144 mEq/L (136-145) 02/26/17 00:40 Potassium 4.8 mEq/L (3.5-5.1) 02/26/17 00:40 Chloride 109 mEq/L (98-107) H 02/26/17 00:40 Carbon Dioxide 31.1 mEq/L (21.0-31.0) H 02/26/17 00:40 Anion Gap 8.7 (7.0-16.0) 02/26/17 00:40 BUN 22 mg/dL (7-25) 02/26/17 00:40 Creatinine 1.0 mg/dL (0.7-1.3) 02/26/17 00:40 Est GFR ( Amer) TNP 02/26/17 00:40 Est GFR (Non-Af Amer) TNP 02/26/17 00:40 BUN/Creatinine Ratio 22.0 02/26/17 00:40 Glucose 184 mg/dL (70-105) H 02/26/17 00:40 POC Glucose 157 MG/DL (70 - 105) H 03/03/17 05:55 Hemoglobin A1c % 7.1 % (4.0-6.0) H 02/26/17 00:40 Calcium 10.7 mg/dL (8.6-10.3) H 02/26/17 00:40 Total Bilirubin 0.4 mg/dL (0.3-1.0) 02/26/17 00:40 AST 13 U/L (13-39) 02/26/17 00:40 ALT 11 U/L (7-52) 02/26/17 00:40 Alkaline Phosphatase 112 U/L (34-104) H 02/26/17 00:40 Total Protein 7.5 gm/dL (6.0-8.3) 02/26/17 00:40 Albumin 4.0 gm/dL (4.2-5.5) L 02/26/17 00:40 Globulin 3.5 gm/dL 02/26/17 00:40 Albumin/Globulin Ratio 1.1 (1.0-1.8) 02/26/17 00:40 TSH 5.06 uIU/ml (0.34-5.60) 02/26/17 00:40 RPR NONREACTIVE (NONREACTIVE) 02/26/17 00:40 - Physical Exam Vitals and I&O: Vital Signs Temp 98.1 F 03/03/17 05:53 Pulse 92 03/03/17 07:28 Resp 18 03/03/17 07:28 BP 113/66 03/03/17 05:53 Pulse Ox 95 03/03/17 07:28 Intake & Output 03/02/17 03/03/17 03/03/17 18:59 06:59 18:59 Intake Total 1400 120 Balance 1400 120 Intake: Oral 1400 120 Other: # Voids 3 1 # Bowel Movements 1 0 Active Medications: Current Medications Albuterol Sulfate (Albuterol 2.5mg/3ml Neb Ud) 2.5 mg HHN Q4HR PRN PRN Reason: Shortness of Breath Ascorbic Acid (Vitamin C) 500 mg PO DAILY [facility] Stop: 04/27/17 08:59 Last Admin: 03/02/17 09:07 Dose: 500 mg Atorvastatin Calcium (Lipitor) 40 mg PO HS [facility] Stop: 04/27/17 20:59 Last Admin: 03/02/17 20:18 Dose: 40 mg Divalproex Sodium (Depakote Dr) 250 mg PO TID [facility] PRN Reason: Protocol Stop: 04/27/17 08:59 Last Admin: 03/02/17 20:18 Dose: 250 mg Furosemide (Lasix) 20 mg PO BID [facility] Stop: 04/27/17 08:59 Last Admin: 03/02/17 16:31 Dose: 20 mg Ibuprofen (Advil) 600 mg PO QID [facility] Stop: 04/27/17 13:14 Last Admin: 03/02/17 20:18 Dose: 600 mg Insulin Aspart (Novolog Insulin Sliding Scale) 0 units SUBQ ACHS [facility] PRN Reason: Protocol Stop: 04/27/17 07:29 Last Admin: 03/03/17 06:36 Dose: 2 units Insulin Detemir (Levemir Insulin) 20 units SUBQ HS [facility] Stop: 04/27/17 20:59 Last Admin: 03/02/17 20:31 Dose: 20 units Ipratropium [place] (Atrovent Neb 0.5mg/2.5ml) 0.5 mg HHN QIDRT [facility] Stop: 04/27/17 10:59 Last Admin: 03/03/17 07:28 Dose: 0.5 mg Lisinopril (Zestril) 20 mg PO DAILY [facility] Stop: 04/27/17 08:59 Last Admin: 03/02/17 09:07 Dose: 20 mg Potassium Chloride (Potassium Chloride Elixir) 10 meq PO DAILY [facility] Stop: 04/27/17 08:59 Last Admin: 03/02/17 09:07 Dose: 10 meq Quetiapine Fumarate (Seroquel) 200 mg PO BID [facility] PRN Reason: Protocol Stop: 04/27/17 08:59 Last Admin: 03/02/17 16:32 Dose: 200 mg Senna (Senna) 8.6 mg PO HS [facility] Stop: 04/27/17 20:59 Last Admin: 03/02/17 20:19 Dose: 8.6 mg Tamsulosin HCl (Flomax) 0.4 mg PO HS [facility] Stop: 04/27/17 20:59 Last Admin: 03/02/17 20:19 Dose: 0.4 mg Zolpidem Tartrate (Ambien) 5 mg PO HS PRN PRN Reason: Insomnia Stop: 04/27/17 02:52 Nutritional Asmnt/Malnutr-PDOC - Dietary Evaluation Malnutrition Findings (Please click <Entered> for more info): Nutritional Asmnt/Malnutrition Start: 02/26/17 14: 42 Text: Status: Complete Freq: Document 02/26/17 14:42 GSUN (Rec: 02/26/17 14:54 GSUN [email or web address]) Nutritional Asmnt/Malnutrition Patient General Information Nutritional Screening High Risk Screening Diagnosis ER: dementia with aggressive behavior, atrial fibrillation Pertinent Medical Hx/Surgical Hx ER: HTN, DM, asthma/COPD, dyslipidemia, dementia, benign prostatic hypertrophy, acute renal filure, hyperlipidemia, schizophrenia, smoker, CABG Subjective Information 71 year old male from SNF. Pt was asleep during visit, unable to be woken up. No significant muscle/fat wasting noted, pt appears overweight. Bedscale malfunction, unable to obtain weight. Spoke to SOFTBALL PLAYER , SOFTBALL PLAYER stated pt has good appetite, ate nearly 100% breakfast, no difficulties noted. Current Diet Order/ Nutrition Support [facility] soft chopped, NCS, [place] , [id number] Pertinent Medications Vitamin C, Lipitor, Lasix, Novolog, Levemir, Senna, Seroquel Pertinent Labs 02/26: glucose 184H, A1c 7.1H Nutritional Hx/Data Height 1.7 m Height (Calculated Centimeters) 170.2 Current Weight (lbs) 90.718 kg Weight (Calculated Kilograms) 90.7 Weight (Calculated Grams) 87456.5 [place] Body Weight 148 GI Symptoms [facility], [facility], [place] soft , [place], ground meat Skin Integrity/Comment: Contreras Barakat. Estimated Nutritional Goals Calories/Kcals/Kg IBW 148lb/67.3kg Kcals Calculated 1683-2019kcal (25-30kcal/kg) Protein g/kg: IBW Protein Calculated 67g (1g/kg) Fluid: ml 1683-2019ml (1ml/kcal) Nutritional Problem 1. Problem Problem Altered nutrition related laboratory values related to Etiology DM aeb Signs/Symptoms: H&P, A1c 7.1, elevated glucose Intervention/Recommendation Comments 1. Recommend [id number] to rpomtoe glycemic control. Expected Outcomes/Goals Expected Outcomes/Goals 1. PO intake to meet at least 75% of estimated nutritional needs.
[2017-03-03] MEDS: Dabigatran Mesylate 75 mg Cap PO SCH ×2 (09:08→16:35)
[2017-03-03] MEDS: Multivitamin w/ Minerals Tab PO SCH (09:10)
[2017-03-03] MEDS: Potassium Chloride Elixir 20 mEq /15 mL UDC PO SCH (09:10)
--- NOTE | 2017-03-03 15:58 | Progress Notes ---
DATE: 03/02/2017 PSYCHIATRIC PROGRESS NOTE TIME PATIENT SEEN: 11:30 a.m. SUBJECTIVE: Staff was spoken to. The patient is interviewed. Mood is noted to be irritable. Affect is constricted. Continues to seek negative attention. The patient has no insight into his illness. Coping skills are noted to be very poor at this time. The patient is still testing the limits. The patient is currently on Seroquel and the patient has been able to tolerate the medication. ASSESSMENT: The patient is still psychotic and impulsive. PLAN: To continue the patient with the current medications and followup. JOB# [id number]
[2017-03-03] MEDS: Atorvastatin Calcium 10 MG TAB PO SCH (20:26)
[2017-03-03] MEDS: Insulin Detemir 100 units/mL 10mL Vial SUBQ SCH (20:42)
[2017-03-04] MEDS: INSULIN ASPART SLIDING SCALE 100 UNITS/ML UNIT SUBQ SCH ×4 (06:52→20:56)
[2017-03-04] MEDS: Ipratropium Neb 0.5 mg/2.5 mL UD HHN SCH ×5 (07:22→18:55)
--- NOTE | 2017-03-04 08:10 | Progress Notes ---
DATE: 03/03/2017 TIME PATIENT SEEN: 5:30 p.m. SUBJECTIVE: Staff was spoken to. The patient is interviewed. The patient is screaming and yelling all the time. Insight and judgment at this time are noted to be very much impaired. Coping skills are noted to be poor. No side effects to the medications are noted. The patient is currently on Seroquel 200 mg twice a day and has been able to tolerate the medication. ASSESSMENT: The patient is still psychotic and impulsive. PLAN: To continue the patient with the current medications and followup. JOB# [id number]
[2017-03-04] MEDS: Dabigatran Mesylate 75 mg Cap PO SCH ×2 (09:56→16:50)
[2017-03-04] MEDS: Multivitamin w/ Minerals Tab PO SCH (09:56)
[2017-03-04] MEDS: Potassium Chloride Elixir 20 mEq /15 mL UDC PO SCH (09:57)
[2017-03-04] MEDS: Atorvastatin Calcium 10 MG TAB PO SCH (20:53)
[2017-03-04] MEDS: Insulin Detemir 100 units/mL 10mL Vial SUBQ SCH (20:55)
[2017-03-05] MEDS: INSULIN ASPART SLIDING SCALE 100 UNITS/ML UNIT SUBQ SCH ×4 (06:30→21:27)
[2017-03-05] MEDS: Ipratropium Neb 0.5 mg/2.5 mL UD HHN SCH ×6 (07:23→19:07)
[2017-03-05] MEDS: Potassium Chloride Elixir 20 mEq /15 mL UDC PO SCH (09:01)
[2017-03-05] MEDS: Dabigatran Mesylate 75 mg Cap PO SCH ×2 (09:03→16:48)
[2017-03-05] MEDS: Multivitamin w/ Minerals Tab PO SCH (09:03)
--- NOTE | 2017-03-05 15:43 | General Progress Note ---
Subjective - Review of Systems Events since last encounter: no distress Objective - Results Result Diagrams: 02/26/17 00:40 05 00:40 Recent Labs: Laboratory Last Values WBC 7.9 Th/cmm (4.8-10.8) 02/26/17 00:40 RBC 4.76 Mil/cmm (3.80-5.80) 02/26/17 00:40 Hgb 14.3 gm/dL (12.6-17.4) 02/26/17 00:40 Hct 41.9 % (39.0-49.0) 02/26/17 00:40 MCV 88.0 fl (80-99) 02/26/17 00:40 MCH 30.1 pg (27.0-31.0) 02/26/17 00:40 MCHC Differential 34.2 pg (28.0-36.0) 02/26/17 00:40 RDW 12.9 % (11.5-20.0) 02/26/17 00:40 Plt Count 163 Th/cmm (150-400) 02/26/17 00:40 MPV 8.8 fl 02/26/17 00:40 Neutrophils % 50.4 % (40.0-80.0) 02/26/17 00:40 Lymphocytes % 37.4 % (20.0-50.0) 02/26/17 00:40 Monocytes % 8.6 % (2.0-10.0) 02/26/17 00:40 Eosinophils % 2.5 % (0.0-5.0) 02/26/17 00:40 Basophils % 1.1 % (0.0-2.0) 02/26/17 00:40 Sodium 144 mEq/L (136-145) 02/26/17 00:40 Potassium 4.8 mEq/L (3.5-5.1) 02/26/17 00:40 Chloride 109 mEq/L (98-107) H 02/26/17 00:40 Carbon Dioxide 31.1 mEq/L (21.0-31.0) H 02/26/17 00:40 Anion Gap 8.7 (7.0-16.0) 02/26/17 00:40 BUN 22 mg/dL (7-25) 02/26/17 00:40 Creatinine 1.0 mg/dL (0.7-1.3) 02/26/17 00:40 Est GFR ( Amer) TNP 02/26/17 00:40 Est GFR (Non-Af Amer) TNP 02/26/17 00:40 BUN/Creatinine Ratio 22.0 02/26/17 00:40 Glucose 184 mg/dL (70-105) H 02/26/17 00:40 POC Glucose 210 MG/DL (70 - 105) H 03/05/17 11:32 Hemoglobin A1c % 7.1 % (4.0-6.0) H 02/26/17 00:40 Calcium 10.7 mg/dL (8.6-10.3) H 02/26/17 00:40 Total Bilirubin 0.4 mg/dL (0.3-1.0) 02/26/17 00:40 AST 13 U/L (13-39) 02/26/17 00:40 ALT 11 U/L (7-52) 02/26/17 00:40 Alkaline Phosphatase 112 U/L (34-104) H 02/26/17 00:40 Total Protein 7.5 gm/dL (6.0-8.3) 02/26/17 00:40 Albumin 4.0 gm/dL (4.2-5.5) L 02/26/17 00:40 Globulin 3.5 gm/dL 02/26/17 00:40 Albumin/Globulin Ratio 1.1 (1.0-1.8) 02/26/17 00:40 TSH 5.06 uIU/ml (0.34-5.60) 02/26/17 00:40 RPR NONREACTIVE (NONREACTIVE) 02/26/17 00:40 - Physical Exam Vitals and I&O: Vital Signs Temp 98.2 F 03/05/17 15:12 Pulse 81 03/05/17 15:12 Resp 21 03/05/17 15:12 BP 137/90 03/05/17 15:12 Pulse Ox 98 03/05/17 15:12 Intake & Output 03/04/17 03/05/17 03/05/17 18:59 06:59 18:59 Intake Total 960 Balance 960 Intake: Oral 960 Other: # Voids 3 2 # Bowel Movements 1 Active Medications: Current Medications Albuterol Sulfate (Albuterol 2.5mg/3ml Neb Ud) 2.5 mg HHN Q4HR PRN PRN Reason: Shortness of Breath Last Admin: 03/05/17 14:28 Dose: 2.5 mg Ascorbic Acid (Vitamin C) 500 mg PO DAILY [facility] Stop: 04/27/17 08:59 Last Admin: 03/05/17 09:04 Dose: 500 mg Atorvastatin Calcium (Lipitor) 40 mg PO HS [facility] Stop: 04/27/17 20:59 Last Admin: 03/04/17 20:53 Dose: 40 mg Divalproex Sodium (Depakote Dr) 250 mg PO TID [facility] PRN Reason: Protocol Stop: 04/27/17 08:59 Last Admin: 03/05/17 13:43 Dose: 250 mg Furosemide (Lasix) 20 mg PO BID [facility] Stop: 04/27/17 08:59 Last Admin: 03/05/17 09:04 Dose: 20 mg Ibuprofen (Advil) 600 mg PO QID [facility] Stop: 04/27/17 13:14 Last Admin: 03/05/17 13:43 Dose: 600 mg Insulin Aspart (Novolog Insulin Sliding Scale) 0 units SUBQ ACHS [facility] PRN Reason: Protocol Stop: 04/27/17 07:29 Last Admin: 03/05/17 11:36 Dose: 4 units Insulin Detemir (Levemir Insulin) 20 units SUBQ HS [facility] Stop: 04/27/17 20:59 Last Admin: 03/04/17 20:55 Dose: 20 units Ipratropium [place] (Atrovent Neb 0.5mg/2.5ml) 0.5 mg HHN QIDRT [facility] Stop: 04/27/17 10:59 Last Admin: 03/05/17 14:28 Dose: 0.5 mg Lisinopril (Zestril) 20 mg PO DAILY [facility] Stop: 04/27/17 08:59 Last Admin: 03/05/17 09:04 Dose: 20 mg Potassium Chloride (Potassium Chloride Elixir) 10 meq PO DAILY [facility] Stop: 04/27/17 08:59 Last Admin: 03/05/17 09:01 Dose: 10 meq Quetiapine Fumarate (Seroquel) 200 mg PO BID [facility] PRN Reason: Protocol Stop: 04/27/17 08:59 Last Admin: 03/05/17 09:04 Dose: 200 mg Senna (Senna) 8.6 mg PO HS [facility] Stop: 04/27/17 20:59 Last Admin: 03/04/17 20:54 Dose: 8.6 mg Tamsulosin HCl (Flomax) 0.4 mg PO HS [facility] Stop: 04/27/17 20:59 Last Admin: 03/04/17 20:54 Dose: 0.4 mg Nutritional Asmnt/Malnutr-PDOC - Dietary Evaluation Malnutrition Findings (Please click <Entered> for more info): Nutritional Asmnt/Malnutrition Start: 02/26/17 14: 42 Text: Status: Complete Freq: Document 02/26/17 14:42 GSUN (Rec: 02/26/17 14:54 GSUN [email or web address]) Nutritional Asmnt/Malnutrition Patient General Information Nutritional Screening High Risk Screening Diagnosis ER: dementia with aggressive behavior, atrial fibrillation Pertinent Medical Hx/Surgical Hx ER: HTN, DM, asthma/COPD, dyslipidemia, dementia, benign prostatic hypertrophy, acute renal filure, hyperlipidemia, schizophrenia, smoker, CABG Subjective Information 71 year old male from SNF. Pt was asleep during visit, unable to be woken up. No significant muscle/fat wasting noted, pt appears overweight. Bedscale malfunction, unable to obtain weight. Spoke to ASSEMBLER CORNCOB PIPES , ASSEMBLER CORNCOB PIPES stated pt has good appetite, ate nearly 100% breakfast, no difficulties noted. Current Diet Order/ Nutrition Support [facility] soft chopped, NCS, [place] , [id number] Pertinent Medications Vitamin C, Lipitor, Lasix, Novolog, Levemir, Senna, Seroquel Pertinent Labs 02/26: glucose 184H, A1c 7.1H Nutritional Hx/Data Height 1.7 m Height (Calculated Centimeters) 170.2 Current Weight (lbs) 90.718 kg Weight (Calculated Kilograms) 90.7 Weight (Calculated Grams) 92107.5 [place] Body Weight 148 GI Symptoms Usual diet at home [facility] SNF: NCS, [facility] soft , [place], ground meat Skin Integrity/Comment: Contreras 19. Estimated Nutritional Goals Calories/Kcals/Kg IBW 148lb/67.3kg Kcals Calculated 1683-2019kcal (25-30kcal/kg) Protein g/kg: IBW Protein Calculated 67g (1g/kg) Fluid: ml 1683-2019ml (1ml/kcal) Nutritional Problem 1. Problem Problem Altered nutrition related laboratory values related to Etiology DM aeb Signs/Symptoms: H&P, A1c 7.1, elevated glucose Intervention/Recommendation Comments 1. Recommend [id number] to rpomtoe glycemic control. Expected Outcomes/Goals Expected Outcomes/Goals 1. PO intake to meet at least 75% of estimated nutritional needs.
--- NOTE | 2017-03-05 17:35 | Progress Notes ---
DATE: 03/04/2017 PSYCHIATRIC PROGRESS NOTE TIME PATIENT SEEN: 11:00 a.m. SUBJECTIVE: Staff was spoken to. The patient is interviewed. Mood is noted to be irritable. Affect is constricted. Insight and judgment are noted to be still impaired. Impulse control is noted to be poor. The patient is still testing the limits. No side effects to the medications are noted. The patient so far has been compliant with the medications. The patient has been displaying more of the confusion in the morning and as the time goes by, the patient's confusion is clearing up. ASSESSMENT: The patient is still psychotic and impulsive. PLAN: To continue the patient with the current medications. I encouraged the patient to verbalize the concerns rather than to act out. JOB# [id number]
[2017-03-05] MEDS: Atorvastatin Calcium 10 MG TAB PO SCH (20:33)
[2017-03-05] MEDS: Insulin Detemir 100 units/mL 10mL Vial SUBQ SCH (21:30)
--- NOTE | 2017-03-06 01:11 | History & Physical ---
ADMIT DATE: 02/26/2017 The patient came to the Emergency Room for aggressive behavior; I got a call from Dr. Lopez Alvarenga. HISTORY OF PRESENT ILLNESS: The patient is very aggressive, came from the nursing facility, reported no other complaints, had no fever, no chills, no skin lesion, no headache, no shortness of breath. REVIEW OF SYSTEMS: Otherwise, negative. PAST MEDICAL HISTORY: Included history of hypertension, history of diabetes, history of asthma, history of COPD, hyperlipidemia, dementia, and history of acute renal failure. FAMILY HISTORY: CVA. PHYSICAL EXAMINATION: GENERAL: Alert, very confused, and agitated. HEAD: Normal. ENT: Normal. NECK: Supple, nontender. LUNGS: Clear. CARDIOVASCULAR SYSTEM: S1, S2 heard. ABDOMEN: Soft. Bowel sounds are heard. 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 LABORATORY DATA: Hemoglobin was 14.3, hematocrit was 41, WBC 7.9. Electrolytes were within normal limits and BUN of 22, creatinine 1.0, and TSH was 5.0. DIAGNOSES: Severe aggressiveness, psychosis, history of hypertension, history of diabetes, history of asthma, history of chronic obstructive pulmonary disease, history of hyperlipidemia, history of dementia, history of renal failure, history of benign enlargement of the prostate ____. PLAN: The patient is being admitted. Dr. Gordon will follow the patient and I will follow medically and I will renew all her medications and I will follow the patient. JOB# [id number]
--- NOTE | 2017-03-06 03:52 | Progress Notes ---
DATE: 03/05/2017 PSYCHIATRIC PROGRESS NOTE TIME PATIENT SEEN: 4:45 p.m. SUBJECTIVE: Staff was spoken to. The patient is interviewed. Mood is noted to be irritable. Affect is constricted. Insight and judgment are noted to be still impaired. Impulse control seems to be poor. The patient is still screaming and yelling. No side effects to the medications are noted. The patient has been having difficult time to cope with the stress. The patient tends to scream most of the time and needs to be closely monitored and redirected. ASSESSMENT: The patient is still grossly psychotic. PLAN: To continue the patient with supportive therapy. I encouraged the patient to verbalize the concerns rather than to act out. The patient is currently on Depakote, plan to get the Depakote level tomorrow. JOB# [id number]
[2017-03-06] MEDS: INSULIN ASPART SLIDING SCALE 100 UNITS/ML UNIT SUBQ SCH ×4 (06:48→21:09)
[2017-03-06] MEDS: Ipratropium Neb 0.5 mg/2.5 mL UD HHN SCH ×4 (07:25→19:37)
[2017-03-06] MEDS: Potassium Chloride Elixir 20 mEq /15 mL UDC PO SCH (08:26)
[2017-03-06] MEDS: Dabigatran Mesylate 75 mg Cap PO SCH ×2 (08:26→16:48)
[2017-03-06] MEDS: Multivitamin w/ Minerals Tab PO SCH (08:29)
[2017-03-06] MEDS: Atorvastatin Calcium 10 MG TAB PO SCH (20:35)
[2017-03-06] MEDS: Insulin Detemir 100 units/mL 10mL Vial SUBQ SCH (21:08)
--- NOTE | 2017-03-06 23:07 | Progress Notes ---
DATE: 03/06/2017 SUBJECTIVE: The patient was seen in his room, lying in the bed. The patient appears to be confused and combative. The patient is a poor historian due to medical condition, unable to converse in a normal conversation, otherwise the patient is in no acute distress. OBJECTIVE: VITAL SIGNS: Temperature 98.2, heart rate of 81, blood pressure 140/86, respiration 17, saturation of 97% on room air. HEENT: Head: Atraumatic, normocephalic. Eyes: Bilateral conjunctivae are clear. Bilateral pupils are equally round and reactive. NECK: Supple. No JVD. CARDIOVASCULAR: S1 and S2 without murmur. PULMONARY: Clear to auscultation. GASTROINTESTINAL: Soft and nontender without guarding. Positive bowel sounds. MUSCULOSKELETAL: No edema, no clubbing, no cyanosis. ASSESSMENT: 1. Schizoaffective disorder. 2. Bipolar. 3. Dementia. 4. Diabetes mellitus. 5. Osteoarthritis. 6. Hyperlipidemia. 7. Hypertension. 8. Benign prostatic hypertrophy. PLAN: We will continue to keep the patient as inpatient in Geropsych Unit. We will follow up with the psychiatrist to monitor the patient's behavior. Treatment plan will be discussed with Dr. Knutson. JOB# [id number]
--- NOTE | 2017-03-07 06:20 | General Progress Note ---
Subjective - Review of Systems Service Date: 03/07/17 Events since last encounter: no change Objective - Results Result Diagrams: 02/26/17 00:40 05 00:40 Recent Labs: Laboratory Last Values WBC 7.9 Th/cmm (4.8-10.8) 02/26/17 00:40 RBC 4.76 Mil/cmm (3.80-5.80) 02/26/17 00:40 Hgb 14.3 gm/dL (12.6-17.4) 02/26/17 00:40 Hct 41.9 % (39.0-49.0) 02/26/17 00:40 MCV 88.0 fl (80-99) 02/26/17 00:40 MCH 30.1 pg (27.0-31.0) 02/26/17 00:40 MCHC Differential 34.2 pg (28.0-36.0) 05 00:40 RDW 12.9 % (11.5-20.0) 02/26/17 00:40 Plt Count 163 Th/cmm (150-400) 02/26/17 00:40 MPV 8.8 fl 02/26/17 00:40 Neutrophils % 50.4 % (40.0-80.0) 02/26/17 00:40 Lymphocytes % 37.4 % (20.0-50.0) 02/26/17 00:40 Monocytes % 8.6 % (2.0-10.0) 02/26/17 00:40 Eosinophils % 2.5 % (0.0-5.0) 02/26/17 00:40 Basophils % 1.1 % (0.0-2.0) 02/26/17 00:40 Sodium 144 mEq/L (136-145) 02/26/17 00:40 Potassium 4.8 mEq/L (3.5-5.1) 02/26/17 00:40 Chloride 109 mEq/L (98-107) H 02/26/17 00:40 Carbon Dioxide 31.1 mEq/L (21.0-31.0) H 02/26/17 00:40 Anion Gap 8.7 (7.0-16.0) 02/26/17 00:40 BUN 22 mg/dL (7-25) 02/26/17 00:40 Creatinine 1.0 mg/dL (0.7-1.3) 02/26/17 00:40 Est GFR ( Amer) TNP 02/26/17 00:40 Est GFR (Non-Af Amer) TNP 02/26/17 00:40 BUN/Creatinine Ratio 22.0 02/26/17 00:40 Glucose 184 mg/dL (70-105) H 02/26/17 00:40 POC Glucose 137 MG/DL (70 - 105) H 03/06/17 20:18 Hemoglobin A1c % 7.1 % (4.0-6.0) H 02/26/17 00:40 Calcium 10.7 mg/dL (8.6-10.3) H 02/26/17 00:40 Total Bilirubin 0.4 mg/dL (0.3-1.0) 02/26/17 00:40 AST 13 U/L (13-39) 02/26/17 00:40 ALT 11 U/L (7-52) 02/26/17 00:40 Alkaline Phosphatase 112 U/L (34-104) H 02/26/17 00:40 Total Protein 7.5 gm/dL (6.0-8.3) 02/26/17 00:40 Albumin 4.0 gm/dL (4.2-5.5) L 02/26/17 00:40 Globulin 3.5 gm/dL 02/26/17 00:40 Albumin/Globulin Ratio 1.1 (1.0-1.8) 02/26/17 00:40 TSH 5.06 uIU/ml (0.34-5.60) 02/26/17 00:40 Valproic Acid 30.5 ug/mL (50.0-100.0) L 03/05/17 19:58 RPR NONREACTIVE (NONREACTIVE) 02/26/17 00:40 - Physical Exam Vitals and I&O: Vital Signs Temp 97.8 F 03/06/17 21:07 Pulse 82 03/06/17 21:07 Resp 19 03/06/17 21:07 BP 145/52 03/06/17 21:07 Pulse Ox 97 03/06/17 21:07 Intake & Output 03/06/17 03/06/17 03/07/17 06:59 18:59 06:59 Intake Total 120 Balance 120 Intake: Oral 120 Other: # Voids 2 2 Active Medications: Current Medications Albuterol Sulfate (Albuterol 2.5mg/3ml Neb Ud) 2.5 mg HHN Q4HR PRN PRN Reason: Shortness of Breath Last Admin: 03/05/17 14:28 Dose: 2.5 mg Ascorbic Acid (Vitamin C) 500 mg PO DAILY COUNTS INCLUDE 234 BEDS AT [facility] Stop: 04/27/17 08:59 Last Admin: 03/06/17 08:28 Dose: 500 mg Atorvastatin Calcium (Lipitor) 40 mg PO [facility] Stop: 04/27/17 20:59 Last Admin: 03/06/17 20:35 Dose: 40 mg Divalproex Sodium (Depakote Dr) 250 mg PO TID COUNTS INCLUDE 234 BEDS AT THE [facility] PRN Reason: Protocol Stop: 04/27/17 08:59 Last Admin: 03/06/17 20:36 Dose: 250 mg Furosemide (Lasix) 20 mg PO BID COUNTS INCLUDE 234 BEDS AT THE [facility] Stop: 04/27/17 08:59 Last Admin: 03/06/17 16:49 Dose: 20 mg Ibuprofen (Advil) 600 mg PO QID COUNTS INCLUDE 234 BEDS AT THE [facility] Stop: 04/27/17 13:14 Last Admin: 03/06/17 20:35 Dose: 600 mg Insulin Aspart (Novolog Insulin Sliding Scale) 0 units SUBQ ACHS COUNTS INCLUDE 234 BEDS AT THE [facility] PRN Reason: Protocol Stop: 04/27/17 07:29 Last Admin: 03/06/17 21:09 Dose: Not Given Insulin Detemir (Levemir Insulin) 20 units SUBQ HS COUNTS INCLUDE 234 BEDS AT THE [facility] Stop: 04/27/17 20:59 Last Admin: 03/06/17 21:08 Dose: 20 units Ipratropium [place] (Atrovent Neb 0.5mg/2.5ml) 0.5 mg HHN QIDRT COUNTS INCLUDE 234 BEDS AT THE [facility] Stop: 04/27/17 10:59 Last Admin: 03/06/17 19:37 Dose: 0.5 mg Lisinopril (Zestril) 20 mg PO DAILY COUNTS INCLUDE 234 BEDS AT THE [facility] Stop: 04/27/17 08:59 Last Admin: 03/06/17 08:30 Dose: 20 mg Potassium Chloride (Potassium Chloride Elixir) 10 meq PO DAILY COUNTS INCLUDE 234 BEDS AT THE [facility] Stop: 04/27/17 08:59 Last Admin: 03/06/17 08:26 Dose: 10 meq Quetiapine Fumarate (Seroquel) 200 mg PO BID COUNTS INCLUDE 234 BEDS AT THE [facility] PRN Reason: Protocol Stop: 04/27/17 08:59 Last Admin: 03/06/17 16:48 Dose: 200 mg Senna (Senna) 8.6 mg PO HS DANY Stop: 04/27/17 20:59 Last Admin: 03/06/17 20:36 Dose: 8.6 mg Tamsulosin HCl (Flomax) 0.4 mg PO HS DANY Stop: 04/27/17 20:59 Last Admin: 03/06/17 20:36 Dose: 0.4 mg Nutritional Asmnt/Malnutr-PDOC - Dietary Evaluation Malnutrition Findings (Please click <Entered> for more info): Nutritional Asmnt/Malnutrition Start: 02/26/17 14: 42 Text: Status: Complete Freq: Document 02/26/17 14:42 GSUN (Rec: 02/26/17 14:54 GSUN [email or web address]) Nutritional Asmnt/Malnutrition Patient General Information Nutritional Screening High Risk Screening Diagnosis ER: dementia with aggressive behavior, atrial fibrillation Pertinent Medical Hx/Surgical Hx ER: HTN, DM, asthma/COPD, dyslipidemia, dementia, benign prostatic hypertrophy, acute renal filure, hyperlipidemia, schizophrenia, smoker, CABG Subjective Information 71 year old male from SNF. Pt was asleep during visit, unable to be woken up. No significant muscle/fat wasting noted, pt appears overweight. Bedscale malfunction, unable to obtain weight. Spoke to POLYGRAPH EXAMINER , POLYGRAPH EXAMINER stated pt has good appetite, ate nearly 100% breakfast, no difficulties noted. Current Diet Order/ Nutrition Support [facility] soft chopped, NCS, [place] , [id number] Pertinent Medications Vitamin C, Lipitor, Lasix, Novolog, Levemir, Senna, Seroquel Pertinent Labs 02/26: glucose 184H, A1c 7.1H Nutritional Hx/Data Height 1.7 m Height (Calculated Centimeters) 170.2 Current Weight (lbs) 90.718 kg Weight (Calculated Kilograms) 90.7 Weight (Calculated Grams) 61325.5 [place] Body Weight 148 GI Symptoms Usual diet at home [facility] SNF: NCS, [facility] soft , [place], ground meat Skin Integrity/Comment: Contre[place] Barakat. Estimated Nutritional Goals Calories/Kcals/Kg IBW 148lb/67.3kg Kcals Calculated 1683-2019kcal (25-30kcal/kg) Protein g/kg: IBW Protein Calculated 67g (1g/kg) Fluid: ml 1683-2019ml (1ml/kcal) Nutritional Problem 1. Problem Problem Altered nutrition related laboratory values related to Etiology DM aeb Signs/Symptoms: H&P, A1c 7.1, elevated glucose Intervention/Recommendation Comments 1. Recommend [id number] to rpomtoe glycemic control. Expected Outcomes/Goals Expected Outcomes/Goals 1. PO intake to meet at least 75% of estimated nutritional needs.
[2017-03-07] MEDS: INSULIN ASPART SLIDING SCALE 100 UNITS/ML UNIT SUBQ SCH ×5 (06:36→20:39)
[2017-03-07] MEDS: Ipratropium Neb 0.5 mg/2.5 mL UD HHN SCH ×4 (08:17→19:24)
--- NOTE | 2017-03-07 08:18 | Progress Notes ---
DATE: 03/06/2017 PSYCHIATRIC PROGRESS NOTE TIME PATIENT SEEN: . SUBJECTIVE: Staff was spoken to. The patient is interviewed. Chart is reviewed. The patient continues to be still screaming and yelling. The patient has been having difficult time to cope with the stress. No side effects to the medications are noted. The patient is currently on Depakote. PLAN: To continue the medication and encouraged the patient to verbalize the concerns rather than to act out. [facility]# [id number]
[2017-03-07] MEDS: Potassium Chloride Elixir 20 mEq /15 mL UDC PO SCH (09:00)
[2017-03-07] MEDS: Multivitamin w/ Minerals Tab PO SCH (09:03)
[2017-03-07] MEDS: Dabigatran Mesylate 75 mg Cap PO SCH ×2 (09:10→17:14)
[2017-03-07] MEDS: Atorvastatin Calcium 10 MG TAB PO SCH (20:26)
[2017-03-07] MEDS: Insulin Detemir 100 units/mL 10mL Vial SUBQ SCH (20:32)
--- NOTE | 2017-03-08 03:23 | Progress Notes ---
DATE: 03/07/2017 PSYCHIATRIC PROGRESS NOTE TIME PATIENT SEEN: 1 p.m. SUBJECTIVE: Staff was spoken to. The patient is interviewed and chart is reviewed. The patient continues to be irritable and angry and screaming, and the patient is not able to articulate what is bothering him. Insight and judgment at this time are noted to be still impaired. Impulse control seems to be poor. No side effects to the medications are noted. The patient has been having difficult time to take the Depakote and hence it has been changed to Depakene liquid. The patient is advised to comply with the treatment and verbalize the concerns rather than to act out. The patient is also on the quetiapine 200 mg twice a day and is able to tolerate the medications. No side effects to the medications are noted. However, the patient continues to be having acute mood swings and screaming and yelling. PLAN: To continue the patient with the current medications and follow. JOB# [id number]
[2017-03-08] MEDS: INSULIN ASPART SLIDING SCALE 100 UNITS/ML UNIT SUBQ SCH ×4 (06:32→21:27)
[2017-03-08] MEDS: Ipratropium Neb 0.5 mg/2.5 mL UD HHN SCH ×4 (07:46→19:55)
[2017-03-08] MEDS: Multivitamin w/ Minerals Tab PO SCH (08:47)
[2017-03-08] MEDS: Triple Antibiotic 0.94 gm Pkt TP SCH (08:51)
--- NOTE | 2017-03-08 08:57 | General Progress Note ---
Subjective - Review of Systems Events since last encounter: patient continues to have mood swings irritable Objective - Results Result Diagrams: 02/26/17 00:40 05 00:40 Recent Labs: Laboratory Last Values WBC 7.9 Th/cmm (4.8-10.8) 02/26/17 00:40 RBC 4.76 Mil/cmm (3.80-5.80) 02/26/17 00:40 Hgb 14.3 gm/dL (12.6-17.4) 02/26/17 00:40 Hct 41.9 % (39.0-49.0) 02/26/17 00:40 MCV 88.0 fl (80-99) 02/26/17 00:40 MCH 30.1 pg (27.0-31.0) 02/26/17 00:40 MCHC Differential 34.2 pg (28.0-36.0) 02/26/17 00:40 RDW 12.9 % (11.5-20.0) 02/26/17 00:40 Plt Count 163 Th/cmm (150-400) 02/26/17 00:40 MPV 8.8 fl 02/26/17 00:40 Neutrophils % 50.4 % (40.0-80.0) 02/26/17 00:40 Lymphocytes % 37.4 % (20.0-50.0) 02/26/17 00:40 Monocytes % 8.6 % (2.0-10.0) 02/26/17 00:40 Eosinophils % 2.5 % (0.0-5.0) 02/26/17 00:40 Basophils % 1.1 % (0.0-2.0) 02/26/17 00:40 Sodium 144 mEq/L (136-145) 02/26/17 00:40 Potassium 4.8 mEq/L (3.5-5.1) 02/26/17 00:40 Chloride 109 mEq/L (98-107) H 02/26/17 00:40 Carbon Dioxide 31.1 mEq/L (21.0-31.0) H 02/26/17 00:40 Anion Gap 8.7 (7.0-16.0) 02/26/17 00:40 BUN 22 mg/dL (7-25) 02/26/17 00:40 Creatinine 1.0 mg/dL (0.7-1.3) 02/26/17 00:40 Est GFR ( Amer) TNP 02/26/17 00:40 Est GFR (Non-Af Amer) TNP 02/26/17 00:40 BUN/Creatinine Ratio 22.0 02/26/17 00:40 Glucose 184 mg/dL (70-105) H 02/26/17 00:40 POC Glucose 157 MG/DL (70 - 105) H 03/08/17 06:11 Hemoglobin A1c % 7.1 % (4.0-6.0) H 02/26/17 00:40 Calcium 10.7 mg/dL (8.6-10.3) H 02/26/17 00:40 Total Bilirubin 0.4 mg/dL (0.3-1.0) 02/26/17 00:40 AST 13 U/L (13-39) 02/26/17 00:40 ALT 11 U/L (7-52) 02/26/17 00:40 Alkaline Phosphatase 112 U/L (34-104) H 02/26/17 00:40 Total Protein 7.5 gm/dL (6.0-8.3) 02/26/17 00:40 Albumin 4.0 gm/dL (4.2-5.5) L 02/26/17 00:40 Globulin 3.5 gm/dL 02/26/17 00:40 Albumin/Globulin Ratio 1.1 (1.0-1.8) 02/26/17 00:40 TSH 5.06 uIU/ml (0.34-5.60) 02/26/17 00:40 Valproic Acid 30.5 ug/mL (50.0-100.0) L 03/05/17 19:58 RPR NONREACTIVE (NONREACTIVE) 02/26/17 00:40 - Physical Exam Vitals and I&O: Vital Signs Temp 97.6 F 03/08/17 06:29 Pulse 102 03/08/17 07:45 Resp 16 03/08/17 07:45 BP 141/81 03/08/17 06:29 Pulse Ox 98 03/08/17 07:45 Intake & Output 03/07/17 03/08/17 03/08/17 18:59 06:59 18:59 Intake Total 700 120 Balance 700 120 Intake: Oral 700 120 Other: # Voids 3 3 # Bowel Movements 0 Active Medications: Current Medications Albuterol Sulfate (Albuterol 2.5mg/3ml Neb Ud) 2.5 mg HHN Q4HR PRN PRN Reason: Shortness of Breath Last Admin: 03/05/17 14:28 Dose: 2.5 mg Ascorbic Acid (Vitamin C) 500 mg PO DAILY [facility] Stop: 04/27/17 08:59 Last Admin: 03/07/17 09:02 Dose: 500 mg Atorvastatin Calcium (Lipitor) 40 mg PO HS [facility] Stop: 04/27/17 20:59 Last Admin: 03/07/17 20:26 Dose: 40 mg Furosemide (Lasix) 20 mg PO BID [facility] Stop: 04/27/17 08:59 Last Admin: 03/07/17 17:09 Dose: 20 mg Ibuprofen (Advil) 600 mg PO QID [facility] Stop: 04/27/17 13:14 Last Admin: 03/07/17 20:26 Dose: 600 mg Insulin Aspart (Novolog Insulin Sliding Scale) 0 units SUBQ ACHS [facility] PRN Reason: Protocol Stop: 04/27/17 07:29 Last Admin: 03/08/17 06:32 Dose: 2 units Insulin Detemir (Levemir Insulin) 20 units SUBQ HS [facility] Stop: 04/27/17 20:59 Last Admin: 03/07/17 20:32 Dose: 20 units Ipratropium [place] (Atrovent Neb 0.5mg/2.5ml) 0.5 mg HHN QIDRT [facility] Stop: 04/27/17 10:59 Last Admin: 03/08/17 07:46 Dose: 0.5 mg Lisinopril (Zestril) 20 mg PO DAILY [facility] Stop: 04/27/17 08:59 Last Admin: 03/07/17 09:02 Dose: 20 mg Neomycin/Polymyxin/Bacitracin (Triple Antibiotic Pkt) 1 pkt TP DAILY [facility] Stop: 05/07/17 08:59 Potassium Chloride (Potassium Chloride Elixir) 10 meq PO DAILY [facility] Stop: 04/27/17 08:59 Last Admin: 03/07/17 09:00 Dose: 10 meq Quetiapine Fumarate (Seroquel) 200 mg PO BID [facility] PRN Reason: Protocol Stop: 04/27/17 08:59 Last Admin: 03/07/17 17:09 Dose: 200 mg Senna (Senna) 8.6 mg PO HS [facility] Stop: 04/27/17 20:59 Last Admin: 03/07/17 20:27 Dose: 8.6 mg Tamsulosin HCl (Flomax) 0.4 mg PO HS [facility] Stop: 04/27/17 20:59 Last Admin: 03/07/17 20:27 Dose: 0.4 mg Valproate Sodium (Depakene) 250 mg PO TID DANY PRN Reason: Protocol Stop: 05/06/17 13:59 Last Admin: 03/07/17 20:26 Dose: 250 mg General: No acute distress HEENT: Atraumatic Neck: Supple Cardiovascular: Regular rate Abdomen: Bowel sounds Assessment/Plan - Problem List Patient Problems: All Active Problems Aggressiveness (Acute) R45.89 Asthma (Acute) J45.909 COPD (chronic obstructive pulmonary disease) (Acute) Dementia (Acute) F03.90 Diabetes (Acute) E11.9 H/O renal failure (Acute) Z87.448 HTN (hypertension) (Acute) I10 Hyperlipidemia (Acute) E78.5 Psychosis (Acute) F29 - Plan Plan: continue with current treatment plan as per psych with monitor Nutritional Asmnt/Malnutr-PDOC - Dietary Evaluation Malnutrition Findings (Please click <Entered> for more info): Nutritional Asmnt/Malnutrition Start: 02/26/17 14: 42 Text: Status: Complete Freq: Document 02/26/17 14:42 GSUN (Rec: 02/26/17 14:54 GSUN [email or web address]) Nutritional Asmnt/Malnutrition Patient General Information Nutritional Screening High Risk Screening Diagnosis ER: dementia with aggressive behavior, atrial fibrillation Pertinent Medical Hx/Surgical Hx ER: HTN, DM, asthma/COPD, dyslipidemia, dementia, benign prostatic hypertrophy, acute renal filure, hyperlipidemia, schizophrenia, smoker, CABG Subjective Information 71 year old male from SNF. Pt was asleep during visit, unable to be woken up. No significant muscle/fat wasting noted, pt appears overweight. Bedscale malfunction, unable to obtain weight. Spoke to KINDERGARTNERS HELPER , KINDERGARTNERS HELPER stated pt has good appetite, ate nearly 100% breakfast, no difficulties noted. Current Diet Order/ Nutrition Support [facility] soft chopped, NCS, [place] , [id number] Pertinent Medications Vitamin C, Lipitor, Lasix, Novolog, Levemir, Senna, Seroquel Pertinent Labs 02/26: glucose 184H, A1c 7.1H Nutritional Hx/Data Height 1.7 m Height (Calculated Centimeters) 170.2 Current Weight (lbs) 90.718 kg Weight (Calculated Kilograms) 90.7 Weight (Calculated Grams) 79788.5 [place] Body Weight 148 GI Symptoms Usual diet at home [facility] SNF: [facility], [facility] soft , [place], ground meat Skin Integrity/Comment: [place] 19. Estimated Nutritional Goals Calories/Kcals/Kg IBW 148lb/67.3kg Kcals Calculated 1683-2019kcal (25-30kcal/kg) Protein g/kg: IBW Protein Calculated 67g (1g/kg) Fluid: ml 1683-2019ml (1ml/kcal) Nutritional Problem 1. Problem Problem Altered nutrition related laboratory values related to Etiology DM aeb Signs/Symptoms: H&P, A1c 7.1, elevated glucose Intervention/Recommendation Comments 1. Recommend [id number] to rpomtoe glycemic control. Expected Outcomes/Goals Expected Outcomes/Goals 1. PO intake to meet at least 75% of estimated nutritional needs.
[2017-03-08] MEDS ORDERED: Magnesium Hydroxide (MOM) 30 mL UDC PO PRN (10:49)
[2017-03-08] MEDS: Dabigatran Mesylate 75 mg Cap PO SCH ×2 (13:00→16:30)
[2017-03-08] MEDS: Potassium Chloride Elixir 20 mEq /15 mL UDC PO SCH (13:00)
[2017-03-08] MEDS: Atorvastatin Calcium 10 MG TAB PO SCH (21:03)
[2017-03-08] MEDS: Insulin Detemir 100 units/mL 10mL Vial SUBQ SCH (21:28)
--- NOTE | 2017-03-08 22:12 | Progress Notes ---
DATE: 03/08/2017 PSYCHIATRIC PROGRESS NOTE TIME PATIENT SEEN: 9:30 a.m. SUBJECTIVE: Staff was spoken to. The patient is interviewed. Mood is noted to be irritable. Affect is constricted. Insight and judgment are noted to be still impaired. Impulse control seems to be poor. The patient has been screaming and yelling. The patient's Depakote has been changed to Depakene, and the patient is still having difficult time to cope with the stress. The patient is currently on of the Depakene, but still having difficult time and hence it is decided to increase the dose on the Depakene to 500 mg twice a day for his screaming and yelling and closely monitor the patient. I encouraged the patient to verbalize the concerns rather than to act out and the patient's Depakote level is going to be requested. The patient at this time is not ready to be discharged to a lower level of care in view of his behavior problems. [facility]# [id number]
[2017-03-09] MEDS: INSULIN ASPART SLIDING SCALE 100 UNITS/ML UNIT SUBQ SCH ×3 (06:37→18:11)
[2017-03-09] MEDS: Ipratropium Neb 0.5 mg/2.5 mL UD HHN SCH ×4 (07:50→19:19)
--- NOTE | 2017-03-09 10:27 | General Progress Note ---
Subjective - Review of Systems Events since last encounter: no change Objective - Results Result Diagrams: 02/26/17 00:40 05 00:40 Recent Labs: Laboratory Last Values WBC 7.9 Th/cmm (4.8-10.8) 02/26/17 00:40 RBC 4.76 Mil/cmm (3.80-5.80) 02/26/17 00:40 Hgb 14.3 gm/dL (12.6-17.4) 02/26/17 00:40 Hct 41.9 % (39.0-49.0) 02/26/17 00:40 MCV 88.0 fl (80-99) 02/26/17 00:40 MCH 30.1 pg (27.0-31.0) 02/26/17 00:40 MCHC Differential 34.2 pg (28.0-36.0) 02/26/17 00:40 RDW 12.9 % (11.5-20.0) 02/26/17 00:40 Plt Count 163 Th/cmm (150-400) 02/26/17 00:40 MPV 8.8 fl 02/26/17 00:40 Neutrophils % 50.4 % (40.0-80.0) 02/26/17 00:40 Lymphocytes % 37.4 % (20.0-50.0) 02/26/17 00:40 Monocytes % 8.6 % (2.0-10.0) 02/26/17 00:40 Eosinophils % 2.5 % (0.0-5.0) 02/26/17 00:40 Basophils % 1.1 % (0.0-2.0) 02/26/17 00:40 Sodium 144 mEq/L (136-145) 02/26/17 00:40 Potassium 4.8 mEq/L (3.5-5.1) 02/26/17 00:40 Chloride 109 mEq/L (98-107) H 02/26/17 00:40 Carbon Dioxide 31.1 mEq/L (21.0-31.0) H 02/26/17 00:40 Anion Gap 8.7 (7.0-16.0) 02/26/17 00:40 BUN 22 mg/dL (7-25) 02/26/17 00:40 Creatinine 1.0 mg/dL (0.7-1.3) 02/26/17 00:40 Est GFR ( Amer) TNP 02/26/17 00:40 Est GFR (Non-Af Amer) TNP 02/26/17 00:40 BUN/Creatinine Ratio 22.0 02/26/17 00:40 Glucose 184 mg/dL (70-105) H 02/26/17 00:40 POC Glucose 136 MG/DL (70 - 105) H 03/08/17 17:01 Hemoglobin A1c % 7.1 % (4.0-6.0) H 02/26/17 00:40 Calcium 10.7 mg/dL (8.6-10.3) H 02/26/17 00:40 Total Bilirubin 0.4 mg/dL (0.3-1.0) 02/26/17 00:40 AST 13 U/L (13-39) 02/26/17 00:40 ALT 11 U/L (7-52) 02/26/17 00:40 Alkaline Phosphatase 112 U/L (34-104) H 02/26/17 00:40 Total Protein 7.5 gm/dL (6.0-8.3) 02/26/17 00:40 Albumin 4.0 gm/dL (4.2-5.5) L 02/26/17 00:40 Globulin 3.5 gm/dL 02/26/17 00:40 Albumin/Globulin Ratio 1.1 (1.0-1.8) 02/26/17 00:40 TSH 5.06 uIU/ml (0.34-5.60) 02/26/17 00:40 Valproic Acid 18.7 ug/mL (50.0-100.0) L 03/08/17 10:27 RPR NONREACTIVE (NONREACTIVE) 02/26/17 00:40 - Physical Exam Vitals and I&O: Vital Signs Temp 98.4 F 03/09/17 06:03 Pulse 71 03/09/17 08:00 Resp 18 03/09/17 08:00 BP 123/70 03/09/17 06:03 Pulse Ox 98 03/09/17 08:00 Intake & Output 03/08/17 03/09/17 03/09/17 18:59 06:59 18:59 Intake Total 800 120 Balance 800 120 Intake: Oral 800 120 Other: # Voids 4 1 # Bowel Movements 1 0 Stool Characteristics Soft Formed Active Medications: Current Medications Albuterol Sulfate (Albuterol 2.5mg/3ml Neb Ud) 2.5 mg HHN Q4HR PRN PRN Reason: Shortness of Breath Last Admin: 03/05/17 14:28 Dose: 2.5 mg Ascorbic Acid (Vitamin C) 500 mg PO DAILY [facility] Stop: 04/27/17 08:59 Last Admin: 03/08/17 08:47 Dose: 500 mg Atorvastatin Calcium (Lipitor) 40 mg PO HS [facility] Stop: 04/27/17 20:59 Last Admin: 03/08/17 21:03 Dose: 40 mg Furosemide (Lasix) 20 mg PO BID [facility] Stop: 04/27/17 08:59 Last Admin: 03/08/17 16:35 Dose: 20 mg Ibuprofen (Advil) 600 mg PO QID [facility] Stop: 04/27/17 13:14 Last Admin: 03/08/17 21:03 Dose: 600 mg Insulin Aspart (Novolog Insulin Sliding Scale) 0 units SUBQ ACHS [facility] PRN Reason: Protocol Stop: 04/27/17 07:29 Last Admin: 03/09/17 06:37 Dose: Not Given Insulin Detemir (Levemir Insulin) 20 units SUBQ HS [facility] Stop: 04/27/17 20:59 Last Admin: 03/08/17 21:28 Dose: 20 units Ipratropium Bonaparte (Atrovent Neb 0.5mg/2.5ml) 0.5 mg HHN QIDRT [facility] Stop: 04/27/17 10:59 Last Admin: 03/09/17 07:50 Dose: 0.5 mg Lisinopril (Zestril) 20 mg PO DAILY [facility] Stop: 04/27/17 08:59 Last Admin: 03/08/17 08:49 Dose: 20 mg Magnesium Hydroxide (Milk Of Magnesia) 30 ml PO DAILY PRN PRN Reason: Constipation Stop: 05/07/17 10:48 Neomycin/Polymyxin/Bacitracin (Triple Antibiotic Pkt) 1 pkt TP DAILY [facility] Stop: 05/07/17 08:59 Last Admin: 03/08/17 08:51 Dose: 1 pkt Potassium Chloride (Potassium Chloride Elixir) 10 meq PO DAILY [facility] Stop: 04/27/17 08:59 Last Admin: 03/08/17 13:00 Dose: 10 meq Quetiapine Fumarate (Seroquel) 200 mg PO BID [facility] PRN Reason: Protocol Stop: 04/27/17 08:59 Last Admin: 03/08/17 16:35 Dose: 200 mg Senna (Senna) 8.6 mg PO HS [facility] Stop: 04/27/17 20:59 Last Admin: 03/08/17 21:04 Dose: 8.6 mg Tamsulosin HCl (Flomax) 0.4 mg PO HS [facility] Stop: 04/27/17 20:59 Last Admin: 03/08/17 21:03 Dose: 0.4 mg Valproate Sodium (Depakene) 500 mg PO BID [facility] PRN Reason: Protocol Stop: 05/07/17 16:59 Last Admin: 03/08/17 16:33 Dose: 500 mg General: No acute distress HEENT: Atraumatic Neck: Supple Cardiovascular: Regular rate, Normal S1, Normal S2 Abdomen: Bowel sounds Assessment/Plan - Problem List Patient Problems: All Active Problems Aggressiveness (Acute) R45.89 Asthma (Acute) J45.909 COPD (chronic obstructive pulmonary disease) (Acute) Dementia (Acute) F03.90 Diabetes (Acute) E11.9 H/O renal failure (Acute) Z87.448 HTN (hypertension) (Acute) I10 Hyperlipidemia (Acute) E78.5 Psychosis (Acute) F29 - Plan Plan: continue with current treatment plan as per psych with monitor Nutritional Asmnt/Malnutr-PDOC - Dietary Evaluation Malnutrition Findings (Please click <Entered> for more info): Nutritional Asmnt/Malnutrition Start: 02/26/17 14: 42 Text: Status: Complete Freq: Document 02/26/17 14:42 GSUN (Rec: 02/26/17 14:54 GSUN [id number]) Nutritional Asmnt/Malnutrition Patient General Information Nutritional Screening High Risk Screening Diagnosis ER: dementia with aggressive behavior, atrial fibrillation Pertinent Medical Hx/Surgical Hx ER: HTN, DM, asthma/COPD, dyslipidemia, dementia, benign prostatic hypertrophy, acute renal filure, hyperlipidemia, schizophrenia, smoker, CABG Subjective Information 71 year old male from SNF. Pt was asleep during visit, unable to be woken up. No significant muscle/fat wasting noted, pt appears overweight. Bedscale malfunction, unable to obtain weight. Spoke to [employer] , [employer] stated pt has good appetite, ate nearly 100% breakfast, no difficulties noted. Current Diet Order/ Nutrition Support [facility] soft chopped, NCS, [address] , [id number] Pertinent Medications Vitamin C, Lipitor, Lasix, Novolog, Levemir, Senna, Seroquel Pertinent Labs 02/26: glucose 184H, A1c 7.1H Nutritional Hx/Data Height 1.7 m Height (Calculated Centimeters) 170.2 Current Weight (lbs) 90.718 kg Weight (Calculated Kilograms) 90.7 Weight (Calculated Grams) 29343.5 [place] Body Weight 148 GI Symptoms Usual diet at home [facility] SNF: NCS, [facility] soft , [address], ground meat Skin Integrity/Comment: Contreras Barakat. Estimated Nutritional Goals Calories/Kcals/Kg IBW 148lb/67.3kg Kcals Calculated 1683-2019kcal (25-30kcal/kg) Protein g/kg: IBW Protein Calculated 67g (1g/kg) Fluid: ml 1683-2019ml (1ml/kcal) Nutritional Problem 1. Problem Problem Altered nutrition related laboratory values related to Etiology DM aeb Signs/Symptoms: H&P, A1c 7.1, elevated glucose Intervention/Recommendation Comments 1. Recommend [id number] to rpomtoe glycemic control. Expected Outcomes/Goals Expected Outcomes/Goals 1. PO intake to meet at least 75% of estimated nutritional needs.
[2017-03-09] MEDS: Triple Antibiotic 0.94 gm Pkt TP SCH (10:59)
[2017-03-09] MEDS: Dabigatran Mesylate 75 mg Cap PO SCH ×2 (11:00→17:23)
[2017-03-09] MEDS: Potassium Chloride Elixir 20 mEq /15 mL UDC PO SCH (11:00)
[2017-03-09] MEDS: Multivitamin w/ Minerals Tab PO SCH (11:00)
--- NOTE | 2017-03-10 05:57 | Progress Notes ---
DATE: 03/09/2017 PSYCHIATRIC PROGRESS NOTE TIME PATIENT SEEN: 7:30 a.m. SUBJECTIVE: Staff was spoken to. The patient is interviewed. Mood is noted to be anxious. Affect is appropriate. Not suicidal or homicidal. Screaming and yelling has been coming down. No side effects to the medications are noted. The patient has been able to verbalize the concerns rather than to act out at the time of the evaluation. ASSESSMENT: The patient is stabilizing. PLAN: To discharge the patient today for followup on outpatient basis. JOB# [id number]
== END 2017-03-09 20:55 | disposition short-term general hospital (02) | DRG 885 ==
LOC: ER 00:07 → GERO 02:10
PROVIDERS: ADMIT Psychiatry & Neurology Psychiatry; ATTEND Psychiatry & Neurology Psychiatry
DX: F25.0 Schizoaffective disorder, bipolar type (principal); F03.91 Unspecified dementia, unspecified severity, with behavioral disturbance; I48.91 Unspecified atrial fibrillation; E11.9 Type 2 diabetes mellitus without complications; H54.0 Blindness, both eyes; E78.5 Hyperlipidemia, unspecified; M19.90 Unspecified osteoarthritis, unspecified site; I10 Essential (primary) hypertension; N40.0 Benign prostatic hyperplasia without lower urinary tract symptoms; F17.200 Nicotine dependence, unspecified, uncomplicated; J45.909 Unspecified asthma, uncomplicated; F29 Unspecified psychosis not due to a substance or known physiological condition; R45.87 Impulsiveness; Z95.1 Presence of aortocoronary bypass graft; Z79.01 Long term (current) use of anticoagulants
CPT/HCPCS: 36415-UA; 80053-TC; 80164-TC; 82948-90; 83036-90; 84443-TC; 85025-TC; 86592-TC; 90779; 93005; 94640; 94760; J1815; J2060; J7613; Z7610